=== PATIENT | female | born 1945 | race Caucasian/White ===

== ENCOUNTER 2016-07-14 14:44 | Emergency (ER) | payer MEDICARE, MEDICAID ==
[~2016-07-14] VITALS: Ht 157.5 cm; Wt 78.5 kg
[~2016-07-14 14:44] MED LIST: ALBU8.5H2 INH; AMLO1TAB59 PO; CHOL50006 PO; DOCU-25 PO; LANS30CA10 PO; LEVO112T8 PO; LINA290C PO; MAGN400T30 PO; METF10002 PO; METH4TAB16 PO; RIVA10TA PO; SIMV20TA6 PO; SOTA80TA PO; TURM1POW PO
[2016-07-14] MEDS ORDERED: LEVO500T90 PO (15:02)
--- NOTE | 2016-07-14 15:18 | NUR ---
PT IS IN ROOM #2A. DR PARKINSON EVALUATED THE PT.
[2016-07-14 15:34] LABS: BASOPHILS % (AUTO) 0.2 % (0.0-2.0); EOSINOPHILS # (AUTO) 0.2 K/uL (0.0-0.7); EOSINOPHILS % (AUTO) 1.9 % (0.0-7.0); HEMATOCRIT 38.7 % (37.0-47.0); LYMPHOCYTES # (AUTO) 3.9 K/uL (0.8-4.8); LYMPHOCYTES % (AUTO) 41.3 % (20.5-51.5); MEAN CORPUSCULAR HEMOGLOBIN 30.5 uug (27.0-31.0); MEAN CORPUSCULAR HGB CONC 34 g/dL (32.0-37.0); MEAN CORPUSCULAR VOLUME 90.6 fL (81.0-99.0); MONOCYTES # (AUTO) 0.7 K/uL (0.1-1.30); MONOCYTES % (AUTO) 6.9 % (0.0-11.0); NEUTROPHILS # (AUTO) 4.7 K/uL (1.8-8.9); NEUTROPHILS % (AUTO) 49.7 % (38.5-71.5); PLATELET COUNT (AUTO) 245 K/uL (150-450); RED BLOOD CELL COUNT(AUTO) 4.27 MIL/uL (4.20-5.40); RED CELL DISTRIBUTION WIDTH 12.7 % (11.5-14.5); WHITE BLOOD COUNT (AUTO) 9.4 K/uL (4.0-11.2)
[2016-07-14 15:39] LABS: CALCIUM 8.7 mg/dL (8.5-10.1); POTASSIUM 4.1 mmol/L (3.5-5.1)
[2016-07-14 15:45] LABS: ALBUMIN 3.3 g/dL (3.4-5.0); BILIRUBIN,DIRECT 0.1 mg/dL (0.0-0.2); BILIRUBIN,TOTAL 0.3 mg/dL (0.2-1.0); TOTAL PROTEIN, SERUM 7.4 g/dL (6.4-8.2)
[2016-07-14 15:55] VITALS: BP 142/77
== END 2016-07-14 15:57 | disposition home or self-care (01) ==
LOC: ER 14:44
DX: R07.89 Other chest pain (principal); I10 Essential (primary) hypertension; I48.91 Unspecified atrial fibrillation; E11.9 Type 2 diabetes mellitus without complications; I63.9 Cerebral infarction, unspecified
CPT/HCPCS: 36415; 70030-TC; 85025; 85730; 93005; A4663

== ENCOUNTER 2017-05-15 03:10 | Emergency (ER) | payer MEDICARE, MEDICAID ==
[~2017-05-15] VITALS: Ht 157.5 cm; Wt 78.0 kg
[~2017-05-15 03:10] MED LIST changes: -ALBU8.5H2 INH; +ALBU8.5H8 INH; +AMLO1TAB33 PO; -AMLO1TAB59 PO; +DOCU-141 PO; -DOCU-25 PO; -LANS30CA10 PO; +LANS30CA54 PO; +LEVO500T90 PO; -SIMV20TA6 PO
--- NOTE | 2017-05-15 03:31 | NUR ---
LEYLA WALLACE AT PT BEDSIDE FOR MSE.
--- NOTE | 2017-05-15 03:44 | NUR ---
PT STATES SHE HAS A RAPID HEART RATE, WHICH SHE BELIEVES IS FROM TAKING HER HOME MEDICATIONS 4 HOURS LATE. VSS AT THIS TIME. NO SIGNS OF DISTRESS NOTED. AT BEDSIDE.
[2017-05-15] MEDS ORDERED: METOPROLOL TARTRATE 50 MG TABLET PO ONE (03:45)
[2017-05-15] MEDS ORDERED: METOPROLOL TARTRATE 50 MG TABLET ONE (04:05)
--- NOTE | 2017-05-15 04:11 | NUR ---
LAB AT PT BEDSIDE.
[2017-05-15 04:26] LABS: BASOPHILS % (AUTO) 0.3 % (0.0-2.0); EOSINOPHILS # (AUTO) 0.2 K/uL (0.0-0.7); EOSINOPHILS % (AUTO) 2.6 % (0.0-7.0); HEMATOCRIT 38.6 % (31.2-41.9); HEMOGLOBIN 13.1 g/dL (10.9-14.3); LYMPHOCYTES # (AUTO) 3.5 K/uL (20.0-40.0); LYMPHOCYTES % (AUTO) 44.4 % (20.5-51.5); MEAN CORPUSCULAR HEMOGLOBIN 31.6 uug (24.7-32.8); MEAN CORPUSCULAR HGB CONC 34 g/dL (32.3-35.6); MEAN CORPUSCULAR VOLUME 93.2 fL (75.5-95.3); MONOCYTES # (AUTO) 0.5 K/uL (2.0-10.0); MONOCYTES % (AUTO) 6.9 % (0.0-11.0); NEUTROPHILS # (AUTO) 3.7 K/uL (1.8-8.9); NEUTROPHILS % (AUTO) 45.8 % (38.5-71.5); PLATELET COUNT (AUTO) 176 K/uL (179-408); RED BLOOD CELL COUNT(AUTO) 4.14 MIL/uL (3.63-4.92)
[2017-05-15 04:30] LABS: CARBON DIOXIDE 27 mmol/L (21-32); CHLORIDE 104 mmol/L (98-107); CREATININE 0.8 mg/dL (0.6-1.3); GLUCOSE 139 mg/dL (74-106); POTASSIUM 3.9 mmol/L (3.5-5.1); UREA NITROGEN, BLOOD 21 mg/dL (7-18)
[2017-05-15 04:37] LABS: ALANINE AMINOTRANSFERASE 15 U/L (14-59); ALKALINE PHOSPHATASE 44 U/L (50-136); ASPARTATE AMINOTRANSFERASE 13 U/L (15-37); BILIRUBIN,DIRECT 0.1 mg/dL (0.0-0.2); BILIRUBIN,TOTAL 0.2 mg/dL (0.2-1.0); TOTAL PROTEIN, SERUM 7.8 g/dL (6.4-8.2)
--- NOTE | 2017-05-15 04:40 | NUR ---
PT AMBULATED INDEPENDENTLY FROM BED TO RESTROOM W/ STEADY GAIT. DENIES DIZZINESS OR SOB.
--- NOTE | 2017-05-15 05:14 | NUR ---
XRAY AT PT BEDSIDE.
--- NOTE | 2017-05-15 06:08 | NUR ---
PT RESTING W/ EYES CLOSED. NO SIGNS OF DISTRESS NOTED AT THIS TIME.
--- NOTE | 2017-05-15 06:56 | NUR ---
Patient discharged to home in stable conditon. Written and verbal after care instructions given. Patient verbalizes understanding of instructions. Pt ambulated from ER w/ steady gait. Pt took all belongings.
[2017-05-15 06:57] VITALS: BP 100/59
== END 2017-05-15 06:58 | disposition home or self-care (01) ==
LOC: ER 03:10
DX: I48.0 Paroxysmal atrial fibrillation (principal); M54.2 Cervicalgia; R00.2 Palpitations; F41.9 Anxiety disorder, unspecified; D68.9 Coagulation defect, unspecified; E11.9 Type 2 diabetes mellitus without complications; G89.29 Other chronic pain; I10 Essential (primary) hypertension; I48.2 Chronic atrial fibrillation; Z86.73 Personal history of transient ischemic attack (TIA), and cerebral infarction without residual deficits
CPT/HCPCS: 36415; 70030-TC; 71045; 85025; 85730; 93005; A4663

== ENCOUNTER 2017-06-14 11:02 | Emergency (ER) | payer MEDICARE, MEDICAID ==
[~2017-06-14] VITALS: Ht 157.5 cm; Wt 78.0 kg
[~2017-06-14 11:02] MED LIST changes: -METF10002 PO; +METF10004 PO
[2017-06-14] MEDS ORDERED: methylPREDNISolone SOD SUCC 125 MG/2 ML VIAL IV ONE (11:30)
[2017-06-14] MEDS ORDERED: ALBUTEROL SULFATE 2.5 MG/3 ML NEBU NEB ONE (11:30)
[2017-06-14] MEDS ORDERED: ONDANSETRON IV *ER 4 MG/2 ML VIAL IV ONE (11:30)
[2017-06-14] MEDS ORDERED: IPRATROPIUM BROMIDE 0.5 MG/2.5 ML NEBU NEB ONE (11:30)
--- NOTE | 2017-06-14 11:30 | NUR ---
PT IS IN ROOM #2A. DR OTERO EVALUATED THE PT.
[2017-06-14] MEDS ORDERED: IPRATROPIUM BROMIDE 0.5 MG/2.5 ML NEBU ONE (11:36)
[2017-06-14] MEDS ORDERED: ALBUTEROL SULFATE 2.5 MG/3 ML NEBU ONE (11:36)
[2017-06-14] MEDS ORDERED: ALBUTEROL SULFATE 2.5 MG/ 0.5 ML NEBU ONE (11:37)
[2017-06-14] MEDS ORDERED: MORPHINE SULFATE 4 MG/1 ML DISP.SYRIN IV ONE (11:45)
[2017-06-14 11:48] LABS: BASOPHILS % (AUTO) 0.5 % (0.0-2.0); EOSINOPHILS % (AUTO) 0.8 % (0.0-7.0); HEMATOCRIT 40.5 % (31.2-41.9); HEMOGLOBIN 13.7 g/dL (10.9-14.3); MEAN CORPUSCULAR HEMOGLOBIN 30.8 uug (24.7-32.8); MEAN CORPUSCULAR HGB CONC 34 g/dL (32.3-35.6); MEAN CORPUSCULAR VOLUME 90.9 fL (75.5-95.3); MONOCYTES # (AUTO) 0.4 K/uL (2.0-10.0); MONOCYTES % (AUTO) 8.6 % (0.0-11.0); NEUTROPHILS % (AUTO) 45.1 % (38.5-71.5); PLATELET COUNT (AUTO) 175 K/uL (179-408); RED BLOOD CELL COUNT(AUTO) 4.46 MIL/uL (3.63-4.92); WHITE BLOOD COUNT (AUTO) 4.3 K/uL (3.8-11.8)
[2017-06-14] MEDS ORDERED: MORPHINE SULFATE 4 MG/1 ML DISP.SYRIN ONE (11:50)
[2017-06-14] MEDS ORDERED: MOME13HF2 IH (11:51)
[2017-06-14] MEDS ORDERED: DEXL60CA3 PO (11:51)
[2017-06-14] MEDS ORDERED: ACET-2154 PO (11:51)
[2017-06-14] MEDS ORDERED: IBUP-23 PO (11:51)
[2017-06-14] MEDS ORDERED: AZIL1TAB2 PO (11:51)
[2017-06-14] MEDS ORDERED: LEVO500T2 PO (11:51)
[2017-06-14] MEDS ORDERED: ONDANSETRON 4 MG/2 ML VIAL ONE (11:51)
[2017-06-14] MEDS ORDERED: methylPREDNISolone SOD SUCC 125 MG/2 ML VIAL ONE (11:51)
[2017-06-14] MEDS ORDERED: AMLO10TA2 PO (11:51)
[2017-06-14 11:58] LABS: CARBON DIOXIDE 26 mmol/L (21-32); CHLORIDE 99 mmol/L (98-107); CREATININE 1.5 mg/dL (0.6-1.3); GLUCOSE 118 mg/dL (74-106); POTASSIUM 3.6 mmol/L (3.5-5.1); UREA NITROGEN, BLOOD 24 mg/dL (7-18)
[2017-06-14 12:11] LABS: ALANINE AMINOTRANSFERASE 16 U/L (14-59); ALKALINE PHOSPHATASE 56 U/L (50-136); ASPARTATE AMINOTRANSFERASE 19 U/L (15-37); BILIRUBIN,DIRECT 0.1 mg/dL (0.0-0.2); BILIRUBIN,TOTAL 0.3 mg/dL (0.2-1.0); TOTAL PROTEIN, SERUM 8.4 g/dL (6.4-8.2)
[2017-06-14 13:30] VITALS: BP 139/75
--- NOTE | 2017-06-14 13:30 | NUR ---
PT WAS D/C TO HOME. D/C INSTRUCTIONS GIVEN TO THE PT.
== END 2017-06-14 13:31 | disposition home or self-care (01) ==
LOC: ER 11:02
DX: R07.89 Other chest pain (principal); J44.1 Chronic obstructive pulmonary disease with (acute) exacerbation; I10 Essential (primary) hypertension; E11.9 Type 2 diabetes mellitus without complications; G89.29 Other chronic pain; M54.9 Dorsalgia, unspecified; Z88.8 Allergy status to other drugs, medicaments and biological substances; Z79.1 Long term (current) use of non-steroidal anti-inflammatories (NSAID); Z79.84 Long term (current) use of oral hypoglycemic drugs; Z79.899 Other long term (current) drug therapy; Z79.2 Long term (current) use of antibiotics
CPT/HCPCS: 36415; 71045; 80048; 80076; 83880; 84484; 85025; 85379; 93005; 94644; 96374; 96375; 99285; A4663; J2270; J2405; J2930; J3590; J7030; 70030-TC

== ENCOUNTER 2018-05-06 02:57 | Emergency (ER) | payer MEDICARE, MEDICAID ==
[~2018-05-06] VITALS: Ht 157.5 cm; Wt 77.1 kg
[~2018-05-06 02:57] MED LIST changes: +ACET-2154 PO; -ALBU8.5H8 INH; +AMLO10TA7 PO; -AMLO1TAB33 PO; +AZIL1TAB2 PO; +DEXL60CA3 PO; +IBUP-23 PO; -LANS30CA54 PO; +LEVO500T2 PO; -LEVO500T90 PO; -MAGN400T30 PO; +METF-442 PO; -METF10004 PO; -METH4TAB16 PO; +MOME13HF2 IH
[2018-05-06] MEDS ORDERED: LINZESS 290MCG CAPSULE (03:06)
--- NOTE | 2018-05-06 03:10 | NUR ---
Pt. ambulated into ED w/ c/o 12/19 L rib pain that radiates to back since yesterday, pt. has hx of Afib and is currently taking Xeralto, abd. S/R/distended/NT to touch, BS active X4 quads.,
[2018-05-06] MEDS ORDERED: ACETAMINOPHEN 325 MG TABLET PO ONE (03:15)
[2018-05-06] MEDS ORDERED: ACETAMINOPHEN 325 MG TABLET ONE (03:23)
--- NOTE | 2018-05-06 03:33 | NUR ---
maintenance service technician at bedside for CXR, pt. resting in bed w/ eyes open,
--- NOTE | 2018-05-06 03:53 | NUR ---
Patient discharged to home in stable conditon. Written and verbal after care instructions given. Patient verbalizes understanding of instructions. Pt. d/c w/ prescription per MD order, instructed not to drive, all d/c papers signed, ID band removed, all belongings w/ pt., ambulated out of unit w/ steady gait, left in private vehicle w/ , NAD
== END 2018-05-06 03:56 | disposition home or self-care (01) ==
LOC: ER 02:59
DX: R07.89 Other chest pain (principal); J40 Bronchitis, not specified as acute or chronic; I10 Essential (primary) hypertension; I48.91 Unspecified atrial fibrillation; E11.9 Type 2 diabetes mellitus without complications; G89.29 Other chronic pain; M54.9 Dorsalgia, unspecified; Z79.2 Long term (current) use of antibiotics; Z79.899 Other long term (current) drug therapy; Z79.1 Long term (current) use of non-steroidal anti-inflammatories (NSAID)
CPT/HCPCS: 71045; 93005; A4663

== ENCOUNTER 2018-05-24 15:15 | Inpatient (IN) | payer MEDICARE, MEDICAID ==
[~2018-05-24] VITALS: Ht 160 cm; Wt 83.5 kg
[~2018-05-24 15:15] MED LIST changes: -DOCU-141 PO; +LINZESS 290MCG CAPSULE
[2018-05-24 15:59] LABS: BASOPHILS % (AUTO) 0.4 % (0.0-2.0); EOSINOPHILS # (AUTO) 0.2 K/uL (0.0-0.7); EOSINOPHILS % (AUTO) 2.5 % (0.0-7.0); HEMATOCRIT 38.8 % (31.2-41.9); HEMOGLOBIN 12.9 g/dL (10.9-14.3); LYMPHOCYTES # (AUTO) 3.2 K/uL (20.0-40.0); LYMPHOCYTES % (AUTO) 42.4 % (20.5-51.5); MEAN CORPUSCULAR HEMOGLOBIN 31.1 uug (24.7-32.8); MEAN CORPUSCULAR HGB CONC 33 g/dL (32.3-35.6); MEAN CORPUSCULAR VOLUME 93.8 fL (75.5-95.3); MONOCYTES # (AUTO) 0.5 K/uL (2.0-10.0); MONOCYTES % (AUTO) 6.6 % (0.0-11.0); NEUTROPHILS # (AUTO) 3.6 K/uL (1.8-8.9); NEUTROPHILS % (AUTO) 48.1 % (38.5-71.5); PLATELET COUNT (AUTO) 208 K/uL (179-408); RED BLOOD CELL COUNT(AUTO) 4.14 MIL/uL (3.63-4.92); WHITE BLOOD COUNT (AUTO) 7.6 K/uL (3.8-11.8)
[2018-05-24 16:07] LABS: CARBON DIOXIDE 23 mmol/L (21-32); CHLORIDE 102 mmol/L (98-107); CREATININE 1.3 mg/dL (0.6-1.3); GLUCOSE 136 mg/dL (74-106); POTASSIUM 3.6 mmol/L (3.5-5.1); UREA NITROGEN, BLOOD 38 mg/dL (7-18)
[2018-05-24] MEDS ORDERED: HYDROMORPHONE 1 MG/1 ML DISP.SYRIN IV ONE (16:15)
[2018-05-24] MEDS ORDERED: HYDROMORPHONE 1 MG/1 ML DISP.SYRIN ONE (16:16)
[2018-05-24] MEDS ORDERED: TURMERIC 1000 MG PO SCH (17:15)
[2018-05-24] MEDS ORDERED: DEXTROSE 50% 50 ML DISP.SYRIN IV PRN (17:15)
[2018-05-24] MEDS ORDERED: Medication Not On Formulary EA (Linaclotide (Linzess) 290 MCG) PO PRN (17:15)
[2018-05-24] MEDS ORDERED: ONDANSETRON 4 MG/2 ML VIAL IV PRN (17:15)
[2018-05-24] MEDS ORDERED: MORPHINE SULFATE 2 MG/1 ML DISP.SYRIN IV PRN (17:15)
[2018-05-24] MEDS ORDERED: CHOLECALCIFEROL 50000 UNIT PO SCH (17:15)
[2018-05-24] MEDS ORDERED: Z GUARD REMEDY PASTE 57 GM TUBE TOP PRN (17:15)
[2018-05-24] MEDS ORDERED: ACETAMINOPHEN 325 MG TABLET PO PRN (17:15)
[2018-05-24] MEDS ORDERED: [UNRECOGNIZED DRUG - OTHER] PO SCH (17:15)
[2018-05-24] MEDS ORDERED: ERGOCALCIFEROL 50,000 UNIT CAPSULE PO SCH (18:00)
[2018-05-24 18:20] VITALS: BP 152/81
[2018-05-24 19:25] VITALS: BP 117/68
[2018-05-24] MEDS: IV NS 1000 ML 1,000 ML IV PRN (20:03)
[2018-05-24] MEDS: BLOOD SUGAR DIAGNOSTIC 1 EACH STRIP VI SCH (20:25)
[2018-05-24] MEDS: INSULIN REGULAR, HUMAN 300 UNIT/3 ML VIAL SQ PRN (20:28)
[2018-05-24] MEDS: MORPHINE SULFATE 4 MG/1 ML DISP.SYRIN IV PRN (20:43)
[2018-05-25] MEDS: MORPHINE SULFATE 4 MG/1 ML DISP.SYRIN IV PRN ×3 (00:27→09:30)
[2018-05-25] MEDS ORDERED: SIMETHICONE 80 MG TAB.CHEW PO PRN (00:30)
[2018-05-25 03:47] VITALS: BP 118/64
[2018-05-25] MEDS: LEVOTHYROXINE SODIUM 112 MCG TABLET PO SCH (06:16)
[2018-05-25] MEDS: BLOOD SUGAR DIAGNOSTIC 1 EACH STRIP VI SCH ×4 (06:30→20:26)
[2018-05-25 06:36] LABS: BASOPHILS % (AUTO) 0.1 % (0.0-2.0); EOSINOPHILS % (AUTO) 0.5 % (0.0-7.0); HEMATOCRIT 34.5 % (31.2-41.9); HEMOGLOBIN 11.7 g/dL (10.9-14.3); LYMPHOCYTES # (AUTO) 2.5 K/uL (20.0-40.0); LYMPHOCYTES % (AUTO) 30.5 % (20.5-51.5); MEAN CORPUSCULAR HEMOGLOBIN 31.2 uug (24.7-32.8); MEAN CORPUSCULAR HGB CONC 34 g/dL (32.3-35.6); MEAN CORPUSCULAR VOLUME 92.1 fL (75.5-95.3); MONOCYTES # (AUTO) 0.7 K/uL (2.0-10.0); MONOCYTES % (AUTO) 7.8 % (0.0-11.0); NEUTROPHILS # (AUTO) 5.1 K/uL (1.8-8.9); NEUTROPHILS % (AUTO) 61.1 % (38.5-71.5); PLATELET COUNT (AUTO) 180 K/uL (179-408); RED BLOOD CELL COUNT(AUTO) 3.75 MIL/uL (3.63-4.92); WHITE BLOOD COUNT (AUTO) 8.4 K/uL (3.8-11.8)
[2018-05-25 06:55] LABS: ALANINE AMINOTRANSFERASE 12 U/L (14-59); ALKALINE PHOSPHATASE 52 U/L (50-136); ASPARTATE AMINOTRANSFERASE 16 U/L (15-37); BILIRUBIN,TOTAL 0.5 mg/dL (0.2-1.0); CARBON DIOXIDE 25 mmol/L (21-32); CHLORIDE 103 mmol/L (98-107); CHOLESTEROL 112 mg/dL (<200); CREATININE 0.9 mg/dL (0.6-1.3); GLUCOSE 125 mg/dL (74-106); HDL CHOLESTEROL 47 mg/dL (40-60); MAGNESIUM 2.2 mg/dL (1.8-2.4); PHOSPHOROUS 3.3 mg/dL (2.5-4.9); POTASSIUM 3.2 mmol/L (3.5-5.1); TOTAL PROTEIN, SERUM 7.4 g/dL (6.4-8.2); TRIGLYCERIDES 82 MG/DL (30-150); UREA NITROGEN, BLOOD 28 mg/dL (7-18)
[2018-05-25 07:00] LABS: THYROID STIMULATING HORMONE 4.559 mIU/mL (0.358-3.740)
[2018-05-25] MEDS: SOTALOL HCL 80 MG TABLET PO SCH ×2 (08:57→17:57)
[2018-05-25] MEDS: INSULIN REGULAR, HUMAN 300 UNIT/3 ML VIAL SQ PRN ×3 (08:59→20:28)
[2018-05-25] MEDS ORDERED: [UNRECOGNIZED DRUG - OTHER] PO SCH (09:00)
[2018-05-25] MEDS ORDERED: CHLORTHALIDONE PO SCH (09:00)
[2018-05-25] MEDS ORDERED: AZILSARTAN MED PO SCH (09:00)
[2018-05-25] MEDS: IV NS 1000 ML 1,000 ML IV PRN (10:24)
[2018-05-25] MEDS ORDERED: POTASSIUM CHLORIDE 20 MEQ TAB.PRT.SR PO ONE (10:30)
[2018-05-25] MEDS: DOCUSATE SODIUM 100 MG CAPSULE PO SCH ×2 (11:19→20:23)
[2018-05-25 11:49] VITALS: BP 102/71
[2018-05-25 12:01] LABS: *BILIRUBIN,URIN NEGATIVE (NEGATIVE); *BLOOD, URINE NEGATIVE (NEGATIVE); *CLARITY,URINE CLEAR (CLEAR); *COLOR,URINE YELLOW (YELLOW); *KETONES,URINE NEGATIVE (NEGATIVE); *UROBILINOGEN,URINE 0.2 E.U./dl (NORMAL); LEUKOCYTE ESTERASE ,URINE NEGATIVE (NEGATIVE); NITRITE, URINE NEGATIVE (NEGATIVE); PH,URINE 5.5 (5.0-8.0); UGLUCOSE 2+ (NEGATIVE)
[2018-05-25 12:13] LABS: BACTERIA,URINE FEW /HPF (NONE SEEN); RBC,URINE 0-3 /HPF (0-3); SQUAMOUS EPITHELIAL CELL,UR FEW /HPF (NONE SEEN); WBC,URINE 0-3 /HPF (0-3)
[2018-05-25] MEDS ORDERED: DOCU-141 PO (12:30)
[2018-05-25] MEDS ORDERED: MAGN400T26 PO (12:32)
[2018-05-25] MEDS: EDARBYCLOR PO SCH (12:43)
[2018-05-25 15:49] VITALS: BP 114/74
[2018-05-25] MEDS: HYDROMORPHONE 1 MG/1 ML DISP.SYRIN IV PRN (18:19)
[2018-05-25 20:14] VITALS: BP 96/54
[2018-05-26] MEDS: HYDROMORPHONE 1 MG/1 ML DISP.SYRIN IV PRN ×5 (02:03→22:08)
[2018-05-26] MEDS: IV NS 1000 ML 1,000 ML IV PRN (02:07)
[2018-05-26 04:28] VITALS: BP 126/75
[2018-05-26] MEDS: LEVOTHYROXINE SODIUM 112 MCG TABLET PO SCH (06:27)
[2018-05-26] MEDS: BLOOD SUGAR DIAGNOSTIC 1 EACH STRIP VI SCH ×4 (06:39→21:10)
[2018-05-26 06:41] LABS: BASOPHILS % (AUTO) 0.3 % (0.0-2.0); EOSINOPHILS # (AUTO) 0.1 K/uL (0.0-0.7); HEMATOCRIT 34.7 % (31.2-41.9); HEMOGLOBIN 11.9 g/dL (10.9-14.3); LYMPHOCYTES # (AUTO) 2.2 K/uL (20.0-40.0); LYMPHOCYTES % (AUTO) 29.2 % (20.5-51.5); MEAN CORPUSCULAR HEMOGLOBIN 31.6 uug (24.7-32.8); MEAN CORPUSCULAR HGB CONC 34 g/dL (32.3-35.6); MEAN CORPUSCULAR VOLUME 92.4 fL (75.5-95.3); MONOCYTES # (AUTO) 0.7 K/uL (2.0-10.0); NEUTROPHILS # (AUTO) 4.6 K/uL (1.8-8.9); NEUTROPHILS % (AUTO) 60.5 % (38.5-71.5); PLATELET COUNT (AUTO) 171 K/uL (179-408); RED BLOOD CELL COUNT(AUTO) 3.76 MIL/uL (3.63-4.92); WHITE BLOOD COUNT (AUTO) 7.6 K/uL (3.8-11.8)
[2018-05-26 06:47] LABS: CARBON DIOXIDE 27 mmol/L (21-32); CHLORIDE 102 mmol/L (98-107); CREATININE 0.8 mg/dL (0.6-1.3); GLUCOSE 131 mg/dL (74-106); POTASSIUM 3.5 mmol/L (3.5-5.1); UREA NITROGEN, BLOOD 17 mg/dL (7-18)
[2018-05-26] MEDS: HYDROCODONE/APAP 5-325MG TABLET PO PRN ×2 (07:44→11:27)
[2018-05-26] MEDS: DOCUSATE SODIUM 100 MG CAPSULE PO SCH ×2 (08:47→21:04)
[2018-05-26] MEDS: EDARBYCLOR PO SCH (08:47)
[2018-05-26] MEDS: SOTALOL HCL 80 MG TABLET PO SCH ×2 (08:47→17:52)
[2018-05-26] MEDS: BENZOCAINE/MENTH/CETYLPYRD LOZENGE MM PRN ×2 (09:43→22:37)
[2018-05-26 11:08] VITALS: BP 93/56
[2018-05-26] MEDS: INSULIN REGULAR, HUMAN 300 UNIT/3 ML VIAL SQ PRN ×2 (11:26→21:12)
[2018-05-26] MEDS ORDERED: BISACODYL 10 MG SUPP.RECT RC ONE (11:45)
[2018-05-26 15:24] VITALS: BP 104/62
[2018-05-26] MEDS: POTASSIUM CHLORIDE 20 MEQ in IV D5/ 0.9% NACL 1,000 ML IV PRN (18:19)
[2018-05-26 19:26] VITALS: BP 102/65
[2018-05-27] MEDS: HYDROMORPHONE 1 MG/1 ML DISP.SYRIN IV PRN ×3 (01:16→20:20)
[2018-05-27 03:30] VITALS: BP 142/81
[2018-05-27] MEDS: POTASSIUM CHLORIDE 20 MEQ in IV D5/ 0.9% NACL 1,000 ML IV PRN (04:29)
[2018-05-27] MEDS: LEVOTHYROXINE SODIUM 112 MCG TABLET PO SCH (06:15)
[2018-05-27] MEDS ORDERED: CEFAZOLIN 1 G in PREMIXED 1 EACH IV ONE (06:45)
[2018-05-27] MEDS ORDERED: BACITRACIN 50,000 UNITS VIAL ONE (06:47)
[2018-05-27] MEDS ORDERED: BUPIVACAINE/EPI PF 0.5% 10 ML VIAL ONE (06:48)
[2018-05-27] MEDS: BLOOD SUGAR DIAGNOSTIC 1 EACH STRIP VI SCH ×4 (06:48→20:49)
[2018-05-27] MEDS: INSULIN REGULAR, HUMAN 300 UNIT/3 ML VIAL SQ PRN ×2 (06:53→20:51)
[2018-05-27] MEDS ORDERED: MIDAZOLAM HCL 2 MG/2 ML VIAL ONE (07:26)
[2018-05-27] MEDS ORDERED: FENTANYL CITRATE 100 MCG/2 ML AMPUL ONE ×3 (07:26→10:56)
[2018-05-27] MEDS: DOCUSATE SODIUM 100 MG CAPSULE PO SCH ×2 (09:00→20:25)
[2018-05-27] MEDS: EDARBYCLOR PO SCH (09:00)
[2018-05-27] MEDS: SOTALOL HCL 80 MG TABLET PO SCH ×2 (09:00→17:25)
[2018-05-27] MEDS ORDERED: ONDANSETRON 4 MG/2 ML VIAL ONE ×2 (10:52→11:05)
[2018-05-27 11:55] VITALS: BP 119/75
[2018-05-27] MEDS: CEFAZOLIN 1 G in PREMIXED 1 EACH IV SCH ×2 (14:04→21:05)
[2018-05-27 15:22] VITALS: BP 92/51
[2018-05-27] MEDS ORDERED: SEVOFLURANE 250 ML BOTTLE IH ONE (15:25)
[2018-05-27] MEDS ORDERED: IRR NORMAL SALINE IRRIGATION 1,000 ML BOTTLE IR ONE (15:25)
[2018-05-27] MEDS ORDERED: ONDANSETRON 4 MG/2 ML VIAL IV ONE (15:25)
[2018-05-27] MEDS ORDERED: PROPOFOL 200 MG/20 ML BOTTLE IV ONE (15:25)
[2018-05-27] MEDS ORDERED: [UNRECOGNIZED DRUG - OTHER] IR ONE (15:25)
[2018-05-27] MEDS ORDERED: LIDOCAINE-MPF 2% 5 ML VIAL MC ONE (15:25)
[2018-05-27] MEDS ORDERED: EPHEDRINE SULFATE 50 MG/ML AMPUL MC ONE (15:25)
[2018-05-27] MEDS ORDERED: IV NORMAL SALINE 1000 ML BAG IV ONE (15:25)
[2018-05-27] MEDS ORDERED: KETOROLAC TROMETHAMINE 30 MG INJ IM ONE (15:25)
[2018-05-27] MEDS: RIVAROXABAN 10 MG TABLET PO SCH (18:28)
[2018-05-27 20:27] VITALS: BP 94/50
[2018-05-28] MEDS: HYDROMORPHONE 1 MG/1 ML DISP.SYRIN IV PRN ×3 (01:30→11:43)
[2018-05-28 04:00] VITALS: BP 90/52
[2018-05-28 05:59] LABS: BASOPHILS % (AUTO) 0.4 % (0.0-2.0); EOSINOPHILS # (AUTO) 0.1 K/uL (0.0-0.7); EOSINOPHILS % (AUTO) 1.3 % (0.0-7.0); HEMATOCRIT 30.2 % (31.2-41.9); HEMOGLOBIN 10.3 g/dL (10.9-14.3); LYMPHOCYTES # (AUTO) 1.8 K/uL (20.0-40.0); LYMPHOCYTES % (AUTO) 22.7 % (20.5-51.5); MEAN CORPUSCULAR HEMOGLOBIN 31.8 uug (24.7-32.8); MEAN CORPUSCULAR HGB CONC 34 g/dL (32.3-35.6); MEAN CORPUSCULAR VOLUME 93.4 fL (75.5-95.3); MONOCYTES # (AUTO) 0.7 K/uL (2.0-10.0); MONOCYTES % (AUTO) 8.5 % (0.0-11.0); NEUTROPHILS # (AUTO) 5.3 K/uL (1.8-8.9); NEUTROPHILS % (AUTO) 67.1 % (38.5-71.5); PLATELET COUNT (AUTO) 172 K/uL (179-408); RED BLOOD CELL COUNT(AUTO) 3.24 MIL/uL (3.63-4.92); WHITE BLOOD COUNT (AUTO) 7.9 K/uL (3.8-11.8)
[2018-05-28 06:07] LABS: CARBON DIOXIDE 27 mmol/L (21-32); CHLORIDE 101 mmol/L (98-107); GLUCOSE 152 mg/dL (74-106); UREA NITROGEN, BLOOD 17 mg/dL (7-18)
[2018-05-28] MEDS: LEVOTHYROXINE SODIUM 112 MCG TABLET PO SCH (06:21)
[2018-05-28] MEDS: BLOOD SUGAR DIAGNOSTIC 1 EACH STRIP VI SCH ×4 (06:59→20:53)
[2018-05-28] MEDS: INSULIN REGULAR, HUMAN 300 UNIT/3 ML VIAL SQ PRN ×4 (08:57→20:59)
[2018-05-28] MEDS: EDARBYCLOR PO SCH ×2 (09:00→09:02)
[2018-05-28] MEDS: DOCUSATE SODIUM 100 MG CAPSULE PO SCH ×2 (09:00→20:54)
[2018-05-28] MEDS: SOTALOL HCL 80 MG TABLET PO SCH (09:00)
[2018-05-28 09:04] VITALS: BP 90/54
[2018-05-28] MEDS ORDERED: IV NORMAL SALINE 500 ML IV ONE ×2 (10:00→10:30)
[2018-05-28 13:15] VITALS: BP 100/55
[2018-05-28] MEDS: HYDROCODONE/APAP 5-325MG TABLET PO PRN ×2 (14:23→20:56)
[2018-05-28 16:44] VITALS: BP 92/49
[2018-05-28] MEDS: RIVAROXABAN 10 MG TABLET PO SCH (17:09)
[2018-05-28] MEDS: MAGNESIUM HYDROXIDE 30 ML LIQUID UDC PO PRN (17:17)
[2018-05-28 20:00] VITALS: BP 100/65
[2018-05-29] MEDS: HYDROCODONE/APAP 5-325MG TABLET PO PRN ×2 (04:11→08:50)
[2018-05-29 04:30] VITALS: BP 105/59
[2018-05-29] MEDS: LEVOTHYROXINE SODIUM 112 MCG TABLET PO SCH (06:08)
[2018-05-29] MEDS: BLOOD SUGAR DIAGNOSTIC 1 EACH STRIP VI SCH ×3 (06:48→17:30)
[2018-05-29 07:58] VITALS: BP 113/71
[2018-05-29] MEDS: DOCUSATE SODIUM 100 MG CAPSULE PO SCH (08:08)
[2018-05-29] MEDS: MAGNESIUM HYDROXIDE 30 ML LIQUID UDC PO PRN (10:21)
[2018-05-29 11:08] VITALS: BP 93/51
[2018-05-29] MEDS: INSULIN REGULAR, HUMAN 300 UNIT/3 ML VIAL SQ PRN ×2 (13:07→17:32)
[2018-05-29] MEDS ORDERED: CALCIUM CARBONATE 500 MG TAB.CHEW PO PRN (14:15)
[2018-05-29 15:02] VITALS: BP 99/61
[2018-05-29] MEDS: RIVAROXABAN 10 MG TABLET PO SCH (17:31)
[2018-05-29] MEDS ORDERED: HYDR-3326 PO (20:03)
[2018-05-29] MEDS ORDERED: CALC300T4 PO (20:03)
[2018-05-29] MEDS ORDERED: SIME80TA45 PO (20:03)
[2018-05-29] MEDS ORDERED: BENZ1LOZ58 MM (20:03)
[2018-05-29] MEDS ORDERED: CALC-494 PO (20:03)
== END 2018-05-29 18:25 | DRG 480 ==
LOC: ER 15:15 → MED 16:49
PROVIDERS: ADMIT Nurse Practitioner Acute Care; ATTEND Nurse Practitioner Acute Care
PROC: 0QS736Z Reposition Left Upper Femur with Intramedullary Internal Fixation Device, Percutaneous Approach (ICD-10-PCS; principal; 2018-05-27)
PROC: 0PSJXZZ Reposition Left Radius, External Approach (ICD-10-PCS; 2018-05-27)
DX: S52.592A Other fractures of lower end of left radius, initial encounter for closed fracture (principal); S72.142A Displaced intertrochanteric fracture of left femur, initial encounter for closed fracture; E44.1 Mild protein-calorie malnutrition; S52.612A Displaced fracture of left ulna styloid process, initial encounter for closed fracture; W18.39XA Other fall on same level, initial encounter; Y93.89 Activity, other specified; Y92.013 Bedroom of single-family (private) house as the place of occurrence of the external cause; M19.032 Primary osteoarthritis, left wrist; M25.462 Effusion, left knee; I48.0 Paroxysmal atrial fibrillation; I10 Essential (primary) hypertension; G89.29 Other chronic pain; M54.9 Dorsalgia, unspecified; E89.0 Postprocedural hypothyroidism; E66.9 Obesity, unspecified; Z68.32 Body mass index [BMI] 32.0-32.9, adult; E78.5 Hyperlipidemia, unspecified; E87.6 Hypokalemia; E11.9 Type 2 diabetes mellitus without complications; Z79.01 Long term (current) use of anticoagulants; K21.9 Gastro-esophageal reflux disease without esophagitis; Z79.84 Long term (current) use of oral hypoglycemic drugs; K59.00 Constipation, unspecified; I70.0 Atherosclerosis of aorta; M81.0 Age-related osteoporosis without current pathological fracture; Z86.73 Personal history of transient ischemic attack (TIA), and cerebral infarction without residual deficits; Z83.3 Family history of diabetes mellitus; Z79.890 Hormone replacement therapy
CPT/HCPCS: 36415; 70030-TC; 71045; 73100; 73110; 73502; 73503; 73551; 83735; 84100; 84443; 85025; 85730; 86850; 86900; 86901; 93005; 93307; 97110; 97116; 97165; 97530; 97535; A4217; A4649; A4663; C1713; G0378; J0690; J1170; J1815; J1885; J2250; J2270; J2405; J3010; J3480; J3490; J7030; J7040; J7042

== ENCOUNTER 2018-05-29 15:48 | Inpatient (IN) | payer MEDICARE, MEDICAID ==
[~2018-05-29] VITALS: Ht 160 cm; Wt 83.9 kg
[~2018-05-29 15:48] MED LIST changes: -AMLO10TA7 PO; +DOCU-141 PO; -LEVO500T2 PO; -LINZESS 290MCG CAPSULE; +MAGN400T26 PO
--- NOTE | 2018-05-29 18:45 | NUR ---
Admitted from [facility] 2nd floor for left hip fracture, accompanied by CARLTON Zabala and family members, per hospital bed. Patient stable, not in any form of distress, no dizziness, headache or other symptoms of hypoglycemia noted. With tolerable pain on left arm. Informed Dr. White of admission. Informed patient about unit and oriented about therapy and equipment.
[2018-05-29] MEDS ORDERED: MAGNESIUM HYDROXIDE 30 ML LIQUID UDC PO PRN (19:30)
[2018-05-29] MEDS ORDERED: Z GUARD REMEDY PASTE 57 GM TUBE TOP PRN (19:30)
[2018-05-29] MEDS ORDERED: INSULIN REGULAR, HUMAN 300 UNIT/3 ML VIAL SQ PRN (20:00)
[2018-05-29] MEDS ORDERED: DEXTROSE 50% 50 ML DISP.SYRIN IV PRN ×2 (20:00→21:15)
[2018-05-29] MEDS ORDERED: SIME80TA45 PO (20:03)
[2018-05-29] MEDS ORDERED: CALC300T4 PO (20:03)
[2018-05-29] MEDS ORDERED: BENZ1LOZ58 MM (20:03)
[2018-05-29] MEDS ORDERED: HYDR-3326 PO (20:03)
[2018-05-29] MEDS ORDERED: CALC-494 PO (20:03)
[2018-05-29 20:29] VITALS: BP 120/72
[2018-05-29] MEDS ORDERED: CHOLECALCIFEROL 50000 UNIT PO SCH (21:00)
[2018-05-29] MEDS ORDERED: IBUPROFEN 200 MG TABLET PO PRN (21:00)
[2018-05-29] MEDS ORDERED: [UNRECOGNIZED DRUG - OTHER] PO SCH (21:00)
[2018-05-29] MEDS ORDERED: SIMETHICONE 80 MG TAB.CHEW PO PRN (21:00)
[2018-05-29] MEDS: DOCUSATE SODIUM 100 MG CAPSULE PO SCH (21:00)
[2018-05-29] MEDS ORDERED: CALCIUM CARBONATE 500 MG PO SCH (21:00)
[2018-05-29] MEDS ORDERED: Medication Not On Formulary EA (Linaclotide (Linzess) 290 MCG) PO PRN (21:00)
[2018-05-29] MEDS: BLOOD SUGAR DIAGNOSTIC 1 EACH STRIP VI SCH (21:50)
[2018-05-29] MEDS: INSULIN REGULAR, HUMAN 300 UNIT/3 ML VIAL SQ PRN (21:52)
[2018-05-29] MEDS ORDERED: MAGNESIUM OXIDE 400 MG TABLET PO SCH (22:00)
[2018-05-29] MEDS: HYDROCODONE/APAP 5-325MG TABLET PO PRN (23:10)
[2018-05-30] MEDS: HYDROCODONE/APAP 5-325MG TABLET PO PRN ×4 (03:48→20:32)
--- NOTE | 2018-05-30 04:46 | NUR ---
admitted for left radius ulnar fracture and left hip IM nailing. dressing clean dry and intact patient refused to have picture taken since dressing was changed @ 1700 (05/29) She and daughter says have it done in the morning. alert and oriented x4 LUE with shart arm cast intact, good capillary refill, good pulses, no edema.able to move fingers. On pain management. Medicated with [place] 1 tab q4 hrs as needed. Tolerated well. No ill effects noted. OOB to bedside commode. Voiding well. Had also BM this shift. OOB to commode with moderate assist. Fall precautions maintained. Needs attended. Will monitor patient. Rt arm heplock intact, flush and patent. Kept comfortable. Siderails up for safety.
[2018-05-30 05:02] VITALS: BP 111/64
[2018-05-30] MEDS: BLOOD SUGAR DIAGNOSTIC 1 EACH STRIP VI SCH ×4 (06:35→20:37)
[2018-05-30] MEDS ORDERED: BLOOD SUGAR DIAGNOSTIC 1 EACH STRIP VI SCH (07:30)
[2018-05-30] MEDS ORDERED: LEVOTHYROXINE SODIUM 112 MCG TABLET PO SCH ×2 (07:30)
[2018-05-30 07:46] LABS: BASOPHILS % (AUTO) 0.2 % (0.0-2.0); EOSINOPHILS # (AUTO) 0.1 K/uL (0.0-0.7); EOSINOPHILS % (AUTO) 1.8 % (0.0-7.0); HEMATOCRIT 29.1 % (31.2-41.9); HEMOGLOBIN 9.9 g/dL (10.9-14.3); LYMPHOCYTES # (AUTO) 1.8 K/uL (20.0-40.0); LYMPHOCYTES % (AUTO) 27.1 % (20.5-51.5); MEAN CORPUSCULAR HEMOGLOBIN 31.9 uug (24.7-32.8); MEAN CORPUSCULAR HGB CONC 34 g/dL (32.3-35.6); MEAN CORPUSCULAR VOLUME 93.1 fL (75.5-95.3); MONOCYTES # (AUTO) 0.5 K/uL (2.0-10.0); MONOCYTES % (AUTO) 7.3 % (0.0-11.0); NEUTROPHILS # (AUTO) 4.2 K/uL (1.8-8.9); NEUTROPHILS % (AUTO) 63.6 % (38.5-71.5); PLATELET COUNT (AUTO) 204 K/uL (179-408); RED BLOOD CELL COUNT(AUTO) 3.12 MIL/uL (3.63-4.92); WHITE BLOOD COUNT (AUTO) 6.6 K/uL (3.8-11.8)
[2018-05-30 08:01] LABS: ALANINE AMINOTRANSFERASE 15 U/L (14-59); ALKALINE PHOSPHATASE 62 U/L (50-136); ASPARTATE AMINOTRANSFERASE 25 U/L (15-37); BILIRUBIN,TOTAL 0.6 mg/dL (0.2-1.0); CARBON DIOXIDE 32 mmol/L (21-32); CHLORIDE 101 mmol/L (98-107); CREATININE 0.8 mg/dL (0.6-1.3); GLUCOSE 168 mg/dL (74-106); MAGNESIUM 2.8 mg/dL (1.8-2.4); PHOSPHOROUS 1.7 mg/dL (2.5-4.9); POTASSIUM 3.7 mmol/L (3.5-5.1); TOTAL PROTEIN, SERUM 6.6 g/dL (6.4-8.2); UREA NITROGEN, BLOOD 18 mg/dL (7-18)
[2018-05-30] MEDS ORDERED: MAGNESIUM HYDROXIDE 30 ML LIQUID UDC PO PRN (08:30)
[2018-05-30] MEDS: METFORMIN HCL 500 MG TABLET PO SCH ×2 (08:36→17:08)
[2018-05-30] MEDS: DOCUSATE SODIUM 100 MG CAPSULE PO SCH ×2 (08:36→20:30)
[2018-05-30] MEDS: SOTALOL HCL 80 MG TABLET PO SCH ×2 (08:37→17:08)
[2018-05-30] MEDS: INSULIN REGULAR, HUMAN 300 UNIT/3 ML VIAL SQ PRN ×4 (08:46→20:41)
[2018-05-30] MEDS: LEVOTHYROXINE SODIUM 112 MCG TABLET PO SCH (08:58)
[2018-05-30] MEDS ORDERED: MAGNESIUM OXIDE 400 MG TABLET PO SCH (09:00)
[2018-05-30] MEDS ORDERED: Medication Not On Formulary EA (Metformin Hcl 1,000 MG) PO SCH (09:00)
[2018-05-30 09:41] VITALS: BP 119/71
--- NOTE | 2018-05-30 11:52 | NUR ---
WOUND CARE CONSULT: PT PRESENTS WITH RASH AND SOME SKIN IRRITATION TO LEFT BUTTOCK, PRESENT ON ADMISSION. RECOMMENDATIONS MADE FOR SKIN CARE AND PROTECTION. DISCUSSED WITH NURSING STAFF. PT IS CONTINENT. LEFT BUTTOCK AND LEFT ARM ORTHO DRESSINGS DRY AND INTACT. DEFER TO ORTHO FOR LEFT HIP AND LEFT ARM. WILL SEE PRN. WALLACE IN AGREEMENT WITH PLAN OF CARE. Addendum: 05/30/18 at 1154 by JOANN FRANCO RN Amended: Links added.
--- NOTE | 2018-05-30 12:56 | NUR ---
Patient seen and examined by wound nurse ordered lotrim ointment for redness/rashes on left buttocks. turn and positioning. Continue on pain management for left hip sx prior to therapy with good effect. will continue monitor
[2018-05-30] MEDS ORDERED: NEUTRA PHOS PACKET PO ONE (15:15)
[2018-05-30] MEDS: CLOTRIMAZOLE 1% CREAM 30 GM TUBE TOP SCH (17:09)
[2018-05-30] MEDS: RIVAROXABAN 10 MG TABLET PO SCH (17:15)
[2018-05-30 17:30] VITALS: BP 112/67
--- NOTE | 2018-05-30 19:30 | NUR ---
Patient received in wheel chair with family members at bedside. Alert and oriented x 4. C/O pain in left hip and leg. Will medicate for pain. Iv in right forearm assessed and removed per hospital guidelines of IV being placed greater than 72 hours ago. Call light and frequently used items within reach. Will continue to monitor.
[2018-05-30] MEDS: OXYCODONE HCL 10 MG TAB.SR.12H PO SCH (20:31)
--- NOTE | 2018-05-31 02:08 | NUR ---
During rounds, patient C?O itching coming from left buttock rash. Nurse assessed area and found rash to present, and still intact. patient requested lotion to be put of area, informed patient that it was against wound care nurse guidelines. Offered Benadryl to patient to help elevate itching, she agreed. Dr. Boyer notified of condition and ordered 25mg of Benadryl PO Q6HPRN for itching. Will administered to patient. Will continue to monitor.
[2018-05-31] MEDS ORDERED: diphenhydrAMINE 25 MG CAP PO PRN (02:15)
[2018-05-31 05:15] VITALS: BP 96/59
[2018-05-31] MEDS: LEVOTHYROXINE SODIUM 112 MCG TABLET PO SCH (06:16)
[2018-05-31] MEDS: BLOOD SUGAR DIAGNOSTIC 1 EACH STRIP VI SCH ×4 (06:30→20:21)
--- NOTE | 2018-05-31 06:59 | NUR ---
Patient slept on and off throughout the night. Used call light frequently. Assisted with morning ADLs as gently and slowly as possible, but patient still unhappy with nurse. Explained that NORCO PRN is no longer offered, patient confused. Explained that Oxycotin is new [facility] pain medication, and patient upset. Prune juice given to help relieve constipation. All due medications given-tolerated well. Side rails up for safety. Will endorse to oncoming shift accordingly.
[2018-05-31 07:30] VITALS: BP 109/60
[2018-05-31 08:12] LABS: BASOPHILS % (AUTO) 0.5 % (0.0-2.0); EOSINOPHILS # (AUTO) 0.2 K/uL (0.0-0.7); EOSINOPHILS % (AUTO) 4.2 % (0.0-7.0); HEMATOCRIT 29.4 % (31.2-41.9); HEMOGLOBIN 9.9 g/dL (10.9-14.3); LYMPHOCYTES # (AUTO) 1.3 K/uL (20.0-40.0); LYMPHOCYTES % (AUTO) 25.7 % (20.5-51.5); MEAN CORPUSCULAR HEMOGLOBIN 31.3 uug (24.7-32.8); MEAN CORPUSCULAR HGB CONC 34 g/dL (32.3-35.6); MEAN CORPUSCULAR VOLUME 93.3 fL (75.5-95.3); MONOCYTES # (AUTO) 0.4 K/uL (2.0-10.0); MONOCYTES % (AUTO) 7.5 % (0.0-11.0); NEUTROPHILS # (AUTO) 3.1 K/uL (1.8-8.9); NEUTROPHILS % (AUTO) 62.1 % (38.5-71.5); PLATELET COUNT (AUTO) 248 K/uL (179-408); RED BLOOD CELL COUNT(AUTO) 3.15 MIL/uL (3.63-4.92)
[2018-05-31] MEDS: HYDROCODONE/APAP 5-325MG TABLET PO SCH ×4 (08:14→20:20)
[2018-05-31] MEDS: DOCUSATE SODIUM 100 MG CAPSULE PO SCH ×2 (08:14→20:20)
[2018-05-31] MEDS: METFORMIN HCL 500 MG TABLET PO SCH ×2 (08:14→17:00)
[2018-05-31] MEDS: SOTALOL HCL 80 MG TABLET PO SCH ×2 (08:16→16:39)
[2018-05-31] MEDS: ERGOCALCIFEROL 50,000 UNIT CAPSULE PO SCH (08:16)
[2018-05-31] MEDS: CLOTRIMAZOLE 1% CREAM 30 GM TUBE TOP SCH ×2 (08:18→16:42)
[2018-05-31 08:24] LABS: CARBON DIOXIDE 32 mmol/L (21-32); CHLORIDE 99 mmol/L (98-107); CREATININE 0.8 mg/dL (0.6-1.3); GLUCOSE 149 mg/dL (74-106); MAGNESIUM 2.5 mg/dL (1.8-2.4); PHOSPHOROUS 1.9 mg/dL (2.5-4.9); POTASSIUM 3.6 mmol/L (3.5-5.1); UREA NITROGEN, BLOOD 17 mg/dL (7-18)
--- NOTE | 2018-05-31 09:10 | NUR ---
Patient noted sitting up in bed, complaints of left hip and left arm pain, PRN [place] given, no signs of distress noted, assisted with brushing teeth at this time, took all Am medications, call light in reach, bed locked and in lowest position, all needs met at this time
[2018-05-31] MEDS: INSULIN REGULAR, HUMAN 300 UNIT/3 ML VIAL SQ PRN ×2 (12:14→16:49)
[2018-05-31] MEDS: LINZESS 145 MCG PO SCH (12:18)
[2018-05-31] MEDS ORDERED: NEUTRA PHOS PACKET PO ONE (15:30)
[2018-05-31 16:28] VITALS: BP 124/76
[2018-05-31] MEDS: RIVAROXABAN 10 MG TABLET PO SCH (17:07)
--- NOTE | 2018-05-31 18:42 | NUR ---
PRN pain medication given multiple times this shift for left hip and arm pain, z-guard placed on buttocks, daily weight noted at 180.4 lbs via bed scale, no signs of distress noted this shift
[2018-05-31 19:25] VITALS: BP 144/61
--- NOTE | 2018-05-31 19:25 | NUR ---
Received patient with family at bedside. C/O of pain upon assessment, will medicate. Left hip dressing needs to be changed per MD request. Will change. Assisted patient to bathroom with assistance of daughter. Placed on toilet with call chung within reach. Will continue to monitor.
[2018-05-31] MEDS: DIAZEPAM 2 MG TABLET PO PRN (20:20)
[2018-05-31] MEDS: OXYCODONE HCL 10 MG TAB.SR.12H PO SCH (20:20)
--- NOTE | 2018-05-31 21:00 | NUR ---
Wound picture one. Wound care done per protocol, tolerated procedure well. Pressure off affected area.
--- NOTE | 2018-05-31 21:02 | NUR ---
Patient and daughter request nurse change. SBAR given to new nurse. New nurse will continue to monitor patient.
--- NOTE | 2018-05-31 21:15 | NUR ---
Took over care per patient/family request. Safety measure and fall precaution maintained. Kept comfortable.
[2018-06-01 04:54] VITALS: BP 117/63
[2018-06-01] MEDS: LEVOTHYROXINE SODIUM 112 MCG TABLET PO SCH (06:34)
[2018-06-01] MEDS: BLOOD SUGAR DIAGNOSTIC 1 EACH STRIP VI SCH ×4 (06:40→21:09)
--- NOTE | 2018-06-01 06:59 | NUR ---
Shift End Report: Vs stable. Very needy, demanding and attention seeker patient. Assisted and attended all needs. No fall/injury. No s/s of hypo/hyperglycemia. Left hip dressing dry and intact. No complaint of pain. No significant event reported all night. Continue current rehab plan of care.
[2018-06-01 07:30] LABS: CARBON DIOXIDE 28 mmol/L (21-32); CHLORIDE 100 mmol/L (98-107); CREATININE 0.8 mg/dL (0.6-1.3); GLUCOSE 154 mg/dL (74-106); PHOSPHOROUS 2.3 mg/dL (2.5-4.9); POTASSIUM 3.9 mmol/L (3.5-5.1); UREA NITROGEN, BLOOD 17 mg/dL (7-18)
[2018-06-01 08:00] VITALS: BP 114/66
[2018-06-01] MEDS: DOCUSATE SODIUM 100 MG CAPSULE PO SCH ×2 (08:36→21:03)
[2018-06-01] MEDS: HYDROCODONE/APAP 5-325MG TABLET PO SCH ×4 (08:36→21:04)
[2018-06-01] MEDS: METFORMIN HCL 500 MG TABLET PO SCH ×2 (08:36→16:47)
[2018-06-01] MEDS: CALCIUM CARBONATE 500 MG TAB.CHEW PO PRN ×2 (08:37→16:32)
[2018-06-01] MEDS: LINZESS 145 MCG PO SCH (08:37)
[2018-06-01] MEDS: INSULIN REGULAR, HUMAN 300 UNIT/3 ML VIAL SQ PRN ×3 (08:42→21:26)
--- NOTE | 2018-06-01 09:41 | NUR ---
Patient noted sitting up in bed, took all medications this morning, complaints of pain in left arm and leg, scheduled [place] given, no signs of distress noted, call light in reach, bed locked and in lowest positon
[2018-06-01] MEDS: SOTALOL HCL 80 MG TABLET PO SCH ×2 (11:08→16:33)
[2018-06-01] MEDS: CLOTRIMAZOLE 1% CREAM 30 GM TUBE TOP SCH ×2 (11:09→16:34)
--- NOTE | 2018-06-01 13:49 | NUR ---
INTERDISCIPLINARY TEAM CONFERENCE
[2018-06-01 16:00] VITALS: BP 127/77
[2018-06-01] MEDS ORDERED: NEUTRA PHOS PACKET PO ONE (16:00)
[2018-06-01] MEDS: RIVAROXABAN 10 MG TABLET PO SCH (16:47)
[2018-06-01] MEDS: OXYCODONE HCL 10 MG TAB.SR.12H PO SCH (21:03)
[2018-06-01 22:34] VITALS: BP 115/73
[2018-06-02 06:00] VITALS: BP 169/73
[2018-06-02] MEDS: LEVOTHYROXINE SODIUM 112 MCG TABLET PO SCH (06:25)
[2018-06-02] MEDS: BLOOD SUGAR DIAGNOSTIC 1 EACH STRIP VI SCH ×4 (06:33→21:05)
--- NOTE | 2018-06-02 06:52 | NUR ---
aaox4 needs attended. OOB to the BR with walker. Voiding well. No BM noted this shift. passing gas only. Dressing change to left hip. ebenezer intact. On pain management. Medicated for pain as ordered. Tolerated po meds well. kept comfortable. fall precautions maintained. siderails up for safety.
[2018-06-02 07:25] LABS: CARBON DIOXIDE 28 mmol/L (21-32); CHLORIDE 100 mmol/L (98-107); CREATININE 0.8 mg/dL (0.6-1.3); GLUCOSE 153 mg/dL (74-106); PHOSPHOROUS 2.8 mg/dL (2.5-4.9); POTASSIUM 4.9 mmol/L (3.5-5.1); UREA NITROGEN, BLOOD 18 mg/dL (7-18)
[2018-06-02] MEDS: INSULIN REGULAR, HUMAN 300 UNIT/3 ML VIAL SQ PRN ×2 (08:29→21:12)
[2018-06-02] MEDS: DOCUSATE SODIUM 100 MG CAPSULE PO SCH ×2 (08:30→21:07)
[2018-06-02] MEDS: HYDROCODONE/APAP 5-325MG TABLET PO SCH ×4 (08:31→21:00)
[2018-06-02] MEDS: LINZESS 145 MCG PO SCH (08:33)
[2018-06-02] MEDS: SOTALOL HCL 80 MG TABLET PO SCH ×2 (08:33→17:00)
[2018-06-02] MEDS: CLOTRIMAZOLE 1% CREAM 30 GM TUBE TOP SCH ×2 (08:41→17:58)
[2018-06-02] MEDS: METFORMIN HCL 500 MG TABLET PO SCH ×2 (08:42→18:03)
[2018-06-02] MEDS: DEXILANT 60 MG PO SCH (12:06)
--- NOTE | 2018-06-02 13:55 | NUR ---
INTERDISCIPLINARY TEAM CONFERENCE
--- NOTE | 2018-06-02 14:11 | NUR ---
PT in physical therapy
--- NOTE | 2018-06-02 14:11 | NUR ---
pt in rehab
[2018-06-02 15:01] LABS: BASOPHILS # (AUTO) 0.1 K/uL (0.0-8.0); BASOPHILS % (AUTO) 1.5 % (0.0-2.0); EOSINOPHILS # (AUTO) 0.2 K/uL (0.0-0.7); EOSINOPHILS % (AUTO) 3.5 % (0.0-7.0); HEMATOCRIT 29.3 % (31.2-41.9); HEMOGLOBIN 9.9 g/dL (10.9-14.3); MEAN CORPUSCULAR HEMOGLOBIN 31.8 uug (24.7-32.8); MEAN CORPUSCULAR HGB CONC 34 g/dL (32.3-35.6); MEAN CORPUSCULAR VOLUME 94.6 fL (75.5-95.3); MONOCYTES # (AUTO) 0.5 K/uL (2.0-10.0); MONOCYTES % (AUTO) 7.9 % (0.0-11.0); NEUTROPHILS # (AUTO) 3.9 K/uL (1.8-8.9); NEUTROPHILS % (AUTO) 57.1 % (38.5-71.5); PLATELET COUNT (AUTO) 350 K/uL (179-408); WHITE BLOOD COUNT (AUTO) 6.8 K/uL (3.8-11.8)
[2018-06-02] MEDS: DIAZEPAM 2 MG TABLET PO PRN (15:51)
--- NOTE | 2018-06-02 16:05 | NUR ---
AFTERNOON DEXILANT NOT GIVEN SHE TOOK ONE THIS AM WHEN THE SON BROUGHT HER PILLS IN. WILL TAKE NEXT DOSE TOMORROW ORDERED
[2018-06-02] MEDS: RIVAROXABAN 10 MG TABLET PO SCH (18:06)
--- NOTE | 2018-06-02 19:21 | NUR ---
SHE MISSED HER US. FIRST REFUSED WHEN THEY CAME BUT AFTER SPEAKING TO THE MD SHE AGREED TO HAVE IT DONE. THE US TECH SAID THEY WOULD COME BACK BUT NO ONE RETURNED. CALLED THE RADIOLOGY DEPT AT [phone] I WAS TOLD THE THE US DEPT WAS CLOSED FOR THE DAY. HE SPOKE WITH MD DANG HE SAID IT WAS OK FOR THE US TO BE DONE TOMORROW. I LET THE PT AND HER DAUGHTERS KNOW AND THEY AGREED. NEGATIVE FOR PATRICIA SIGNS, NO C/O PAIN ON AMBULATION. NO TEMPERATURE CHANGES WITHIN THE EXTREMITY. WITH MINIMAL SWELLING THAT OCCURS POST OP.
--- NOTE | 2018-06-02 19:30 | NUR ---
Daughter verbalized concerns about patients left leg being swollen and slightly discolored . Patient is able to move toes on left foot. Surgical site is clean and intact. No bleeding noted. No c/o pain and discomfort at this time. No acute distress noted. Dr. White already aware of current situation, but made aware again of daughters concern. Per MD CBC is normal, no blood loss or infection. Patient is on anticoagulation to prevent blood clots. Message is relayed to daughter and patient and they both verbalize understanding. All needs attended to promptly. Call light within reach. Will continue to monitor.
[2018-06-02 20:00] VITALS: BP 110/70
--- NOTE | 2018-06-02 20:00 | NUR ---
Patient assisted to bathroom with walker. Tolerated well. No c/o pain and discomfort to left foot at this time. Will continue to monitor.
--- NOTE | 2018-06-02 20:38 | NUR ---
Clarified medication order with Dr. White for [place] 5-325mg PO QID and OxyContin 10mg PO HS because both are scheduled to be given at 2100. Per , okay to skip dose for Baisden with new orders to change times for Bais[place] 5-325mg to be given at 0800, 1200, 1600, 2000 and OxyContin to be given at 2200. New orders noted and carried out.
[2018-06-02] MEDS: OXYCODONE HCL 10 MG TAB.SR.12H PO SCH (21:08)
[2018-06-03] MEDS: ACETAMINOPHEN 325 MG TABLET PO PRN ×2 (02:57→14:12)
[2018-06-03 04:00] VITALS: BP 133/62
[2018-06-03] MEDS: LEVOTHYROXINE SODIUM 112 MCG TABLET PO SCH (06:36)
[2018-06-03] MEDS: DEXILANT 60 MG PO SCH (06:37)
[2018-06-03] MEDS: BLOOD SUGAR DIAGNOSTIC 1 EACH STRIP VI SCH ×4 (06:41→20:23)
--- NOTE | 2018-06-03 06:59 | NUR ---
Patient slept comfortably throughout the night. No c/o pain and discomfort. No acute distress. No SOB. Assisted to bathroom as needed with walker throughout the night. Tolerated well. BS is 111. No coverage needed. Swelling on left foot noted to go down. Will continue to keep legs elevated. All needs attended to promptly. Call light within reach. Will continue to monitor.
[2018-06-03 07:03] LABS: BASOPHILS % (AUTO) 0.4 % (0.0-2.0); EOSINOPHILS # (AUTO) 0.2 K/uL (0.0-0.7); EOSINOPHILS % (AUTO) 4.1 % (0.0-7.0); HEMATOCRIT 28.1 % (31.2-41.9); HEMOGLOBIN 9.5 g/dL (10.9-14.3); LYMPHOCYTES # (AUTO) 2.2 K/uL (20.0-40.0); LYMPHOCYTES % (AUTO) 35.7 % (20.5-51.5); MEAN CORPUSCULAR HEMOGLOBIN 31.7 uug (24.7-32.8); MEAN CORPUSCULAR HGB CONC 34 g/dL (32.3-35.6); MEAN CORPUSCULAR VOLUME 93.3 fL (75.5-95.3); MONOCYTES # (AUTO) 0.6 K/uL (2.0-10.0); MONOCYTES % (AUTO) 9.4 % (0.0-11.0); NEUTROPHILS # (AUTO) 3.1 K/uL (1.8-8.9); NEUTROPHILS % (AUTO) 50.4 % (38.5-71.5); PLATELET COUNT (AUTO) 308 K/uL (179-408); RED BLOOD CELL COUNT(AUTO) 3.01 MIL/uL (3.63-4.92); WHITE BLOOD COUNT (AUTO) 6.1 K/uL (3.8-11.8)
[2018-06-03 07:18] LABS: CARBON DIOXIDE 28 mmol/L (21-32); CHLORIDE 104 mmol/L (98-107); CREATININE 0.8 mg/dL (0.6-1.3); GLUCOSE 125 mg/dL (74-106); MAGNESIUM 1.9 mg/dL (1.8-2.4); PHOSPHOROUS 3.1 mg/dL (2.5-4.9); POTASSIUM 4.1 mmol/L (3.5-5.1); UREA NITROGEN, BLOOD 17 mg/dL (7-18)
[2018-06-03] MEDS ORDERED: HYDROCODONE/APAP 5-325MG TABLET PO SCH (08:00)
[2018-06-03] MEDS: SOTALOL HCL 80 MG TABLET PO SCH ×2 (08:36→16:44)
[2018-06-03] MEDS: DOCUSATE SODIUM 100 MG CAPSULE PO SCH ×2 (08:36→20:18)
[2018-06-03] MEDS: METFORMIN HCL 500 MG TABLET PO SCH ×2 (08:36→17:07)
[2018-06-03] MEDS: HYDROCODONE/APAP 5-325MG TABLET PO SCH ×4 (08:36→20:22)
[2018-06-03] MEDS: LINZESS 145 MCG PO SCH (08:38)
[2018-06-03] MEDS: CLOTRIMAZOLE 1% CREAM 30 GM TUBE TOP SCH ×2 (08:38→16:47)
[2018-06-03 08:54] VITALS: BP 124/75
--- NOTE | 2018-06-03 13:41 | NUR ---
Patient continue on pain management routinely and PRN. Continue therapy for ambulation, ADL and transfer ability. lower extremity CT scan done. awaiting result. not in distress. will continue monitor
[2018-06-03] MEDS: INSULIN REGULAR, HUMAN 300 UNIT/3 ML VIAL SQ PRN (16:36)
[2018-06-03] MEDS: RIVAROXABAN 10 MG TABLET PO SCH (17:07)
[2018-06-03 20:56] VITALS: BP 112/70
[2018-06-03] MEDS: OXYCODONE HCL 10 MG TAB.SR.12H PO SCH (22:05)
--- NOTE | 2018-06-03 22:41 | NUR ---
Received pt in bed, AAO x 4 with daughter at bedside. No acute distress noted. Verbally responsive and able to make needs known. Denies pain or discomfort. All due medications given as ordered, tolerated well. Scheduled pain medications given as ordered with good effect. All safety measures and fall precautions maintained. Assisted to bathroom x 1 with walker and 1 person assist. Call light and all personal belongings within reach. Will continue to monitor.
[2018-06-03] MEDS ORDERED: OXYCODONE HCL 10 MG TAB.SR.12H PO SCH (23:45)
[2018-06-04 04:45] VITALS: BP 144/83
[2018-06-04] MEDS: LEVOTHYROXINE SODIUM 112 MCG TABLET PO SCH (06:24)
[2018-06-04] MEDS: ACETAMINOPHEN 325 MG TABLET PO PRN (06:25)
[2018-06-04] MEDS: BLOOD SUGAR DIAGNOSTIC 1 EACH STRIP VI SCH ×4 (06:30→20:51)
[2018-06-04] MEDS: DEXILANT 60 MG PO SCH (06:30)
[2018-06-04 06:59] LABS: BASOPHILS % (AUTO) 0.4 % (0.0-2.0); EOSINOPHILS # (AUTO) 0.2 K/uL (0.0-0.7); EOSINOPHILS % (AUTO) 3.2 % (0.0-7.0); HEMATOCRIT 29.7 % (31.2-41.9); LYMPHOCYTES % (AUTO) 30.5 % (20.5-51.5); MEAN CORPUSCULAR HEMOGLOBIN 31.7 uug (24.7-32.8); MEAN CORPUSCULAR HGB CONC 34 g/dL (32.3-35.6); MEAN CORPUSCULAR VOLUME 94.1 fL (75.5-95.3); MONOCYTES # (AUTO) 0.5 K/uL (2.0-10.0); MONOCYTES % (AUTO) 7.6 % (0.0-11.0); NEUTROPHILS # (AUTO) 3.7 K/uL (1.8-8.9); NEUTROPHILS % (AUTO) 58.3 % (38.5-71.5); PLATELET COUNT (AUTO) 422 K/uL (179-408); RED BLOOD CELL COUNT(AUTO) 3.16 MIL/uL (3.63-4.92); WHITE BLOOD COUNT (AUTO) 6.4 K/uL (3.8-11.8)
[2018-06-04 07:00] VITALS: BP 114/65
[2018-06-04 07:17] LABS: CARBON DIOXIDE 30 mmol/L (21-32); CHLORIDE 103 mmol/L (98-107); CREATININE 0.8 mg/dL (0.6-1.3); GLUCOSE 141 mg/dL (74-106); MAGNESIUM 1.9 mg/dL (1.8-2.4); PHOSPHOROUS 3.1 mg/dL (2.5-4.9); POTASSIUM 4.6 mmol/L (3.5-5.1); UREA NITROGEN, BLOOD 16 mg/dL (7-18)
[2018-06-04] MEDS: DOCUSATE SODIUM 100 MG CAPSULE PO SCH ×2 (08:47→21:03)
[2018-06-04] MEDS: METFORMIN HCL 500 MG TABLET PO SCH ×2 (08:47→17:09)
[2018-06-04] MEDS: HYDROCODONE/APAP 5-325MG TABLET PO SCH ×4 (08:48→19:00)
[2018-06-04] MEDS: SOTALOL HCL 80 MG TABLET PO SCH ×2 (08:48→17:07)
[2018-06-04] MEDS: CLOTRIMAZOLE 1% CREAM 30 GM TUBE TOP SCH ×2 (08:52→17:09)
[2018-06-04] MEDS: LINZESS 145 MCG PO SCH (08:52)
[2018-06-04] MEDS: RIVAROXABAN 10 MG TABLET PO SCH (17:08)
--- NOTE | 2018-06-04 19:50 | NUR ---
RECEIVED PATIENT AWAKE IN BED. A/O X4. WAS PREVIOUSLY MEDICATED PRIOR TO SHIFT CHANGE WITH NORCO PER DAYSHIFT RN. PATIENT STATED PAIN OF 2/10 ON PAIN SCALE. NORCO EFFECTIVE. DRESSING NOTED TO LEFT HIP, C/D/I/. DVT PUMPS IN PLACE. NO RESP. DISTRESS NOTED. CALL LIGHT IN REACH. ALL NEEDS ATTENDED. WILL CONTINUE TO MONITOR AND ASSESS.
[2018-06-04 20:28] VITALS: BP 103/58
[2018-06-04] MEDS: OXYCODONE HCL 10 MG TAB.SR.12H PO SCH (21:04)
[2018-06-05 05:30] VITALS: BP 144/74
[2018-06-05] MEDS: ACETAMINOPHEN 325 MG TABLET PO PRN (05:35)
[2018-06-05] MEDS: LEVOTHYROXINE SODIUM 112 MCG TABLET PO SCH (06:09)
[2018-06-05] MEDS: BLOOD SUGAR DIAGNOSTIC 1 EACH STRIP VI SCH ×4 (06:31→20:40)
--- NOTE | 2018-06-05 06:43 | NUR ---
PATIENT ASLEEP IN BED. SLEPT WELL. VSS. CALL LIGHT IN REACH. ALL NEEDS ATTENDED. WILL CONTINUE TO MONITOR AND ASSESS.
[2018-06-05] MEDS: DEXILANT 60 MG PO SCH (07:43)
[2018-06-05] MEDS: DOCUSATE SODIUM 100 MG CAPSULE PO SCH ×2 (08:26→20:13)
[2018-06-05] MEDS: HYDROCODONE/APAP 5-325MG TABLET PO SCH ×4 (08:26→20:12)
[2018-06-05] MEDS: METFORMIN HCL 500 MG TABLET PO SCH ×2 (08:27→17:03)
[2018-06-05] MEDS: CLOTRIMAZOLE 1% CREAM 30 GM TUBE TOP SCH ×2 (08:30→17:05)
[2018-06-05] MEDS: LINZESS 145 MCG PO SCH (08:30)
[2018-06-05] MEDS: SOTALOL HCL 80 MG TABLET PO SCH ×2 (08:30→17:04)
--- NOTE | 2018-06-05 10:08 | NUR ---
Patient noted resting in bed, complaints of pain 6/10 in left hip, scheduled [place] given for pain, assisted to restroom and back to wheelchair for breakfast, no signs of distress noted, call light in reach, bed locked and in lowest positon, all needs met at this time.
--- NOTE | 2018-06-05 15:41 | NUR ---
Boat Mechanic Assessment: SW met with patient at bedside to provide support and assess for psychosocial needs. Patient is a 73 year-old female with a medical history of diabetes, hypertension, obesity, osteoporosis, and CVA was admitted to ARU s/p ORIFs of Left comminuted intertochanteric fracture and left wrist impacted comminuted fracture of distal radius. Patient is alert and oriented x4 and presented laying in her hospital bed. Patient reports she had a fall at home that resulted in her fractures. Patient's mood seemed depressed with a flat affect. Patient stated that her main support system is her son, Lamine. Per pt, and prior to her hospitalization, her son "would take care of me," by helping pt to-and-from Dr. appointments, showering, and meals. Patient expressed concern about returning home, stating that she would need "much more assistance" if she were to return home. SW provided education about In-Home Supportive Services to the patient, and patient seemed accepting of the information. Patient asked to speak with Contact Person about placement options vs returning home. MERY collaborated with Lonny JEWELL and informed him that pt and her son would like to speak with him. MERY provided emotional support and counseling to the patient and engaged in active listening. MERY will continue to provide ongoing support to the patient and her family throughout her stay in ARU.
[2018-06-05 16:00] VITALS: BP 121/64
[2018-06-05] MEDS: RIVAROXABAN 10 MG TABLET PO SCH (17:05)
--- NOTE | 2018-06-05 18:34 | NUR ---
INFORMED BY MD DANG TO SCHEDULE URGENT APPOINTMENT WITH MD MAGUIRE TO REMOVED CASTING TO LEFT ARM FOR POSSIBLE ULCERATION VIA TO COMPLAINTS OF PAIN, MD MAGUIRE NOTIFIED WITH ORDERS TO REMOVE CAST AND PLACE A SPLINT ON LEFT ARM Addendum: 06/05/18 at 1907 by MARS ARROYO RN RN ER STAFF INFORMED OF PATIENT'S ORDER TO REMOVED CAST TO LEFT ARM, CLINICAL ASSESSMENT MANAGER STATES, "[facility] WILL BE INFORMED TO REMOVED CAST
[2018-06-05 19:45] VITALS: BP 114/72
--- NOTE | 2018-06-05 19:45 | NUR ---
Patient received in bed, AAO x4. No acute distress or SOB was noted. Farsi speaking. On room air. Complained of pain, rated 7/10, on her left hip and left arm. Patient assessed. Safety measures maintained, Fall precaution observed, Bed in low position, brake and alarm on, side rails up x2 for safety. Continue to monitor.
--- NOTE | 2018-06-05 21:35 | NUR ---
Lamine from the ER removed the cast from the left forearm and put patient's FA in splint. Patient's hand had swelling without any skin wounds.Her family was there.will continue to monitor.
[2018-06-05] MEDS: OXYCODONE HCL 10 MG TAB.SR.12H PO SCH (21:40)
[2018-06-06] MEDS: ACETAMINOPHEN 325 MG TABLET PO PRN (03:34)
[2018-06-06 04:48] VITALS: BP 107/62
--- NOTE | 2018-06-06 05:46 | NUR ---
End of the shift note Patient was stable throughout the shift. No sign of acute distress or SOB was noted. Complained of pain on her arm rated 6/10. Cast removed, put splint on her left FA and hand. Scheduled pain medications given as ordered with good effect. Tylenol 650 mg given at 0330 for her arm pain. V/S checked. Accucheck done, BS 126 at 2100, no insulin coverage based on sliding scale. DVT pump in place. Assisted to bathroom x 3 with walker and 1 person assist. Safety measures maintained. Fall precaution observed. All needs attended promptly. Bed in low position, brake and alarm on, side rails up x2 for safety. Call light and all personal belongings within reach. Will continue to monitor and endorse to the day shift nurse accordingly.
[2018-06-06] MEDS: DEXILANT 60 MG PO SCH (06:33)
[2018-06-06] MEDS: BLOOD SUGAR DIAGNOSTIC 1 EACH STRIP VI SCH ×4 (06:33→20:29)
[2018-06-06] MEDS: LEVOTHYROXINE SODIUM 112 MCG TABLET PO SCH (06:33)
[2018-06-06 08:00] VITALS: BP 109/65
[2018-06-06] MEDS: METFORMIN HCL 500 MG TABLET PO SCH ×2 (08:40→17:13)
[2018-06-06] MEDS: DOCUSATE SODIUM 100 MG CAPSULE PO SCH ×2 (08:40→20:29)
[2018-06-06] MEDS: SOTALOL HCL 80 MG TABLET PO SCH ×2 (08:45→16:32)
[2018-06-06] MEDS: CLOTRIMAZOLE 1% CREAM 30 GM TUBE TOP SCH ×2 (08:47→16:32)
[2018-06-06] MEDS: LINZESS 145 MCG PO SCH (08:48)
[2018-06-06] MEDS: HYDROCODONE/APAP 5-325MG TABLET PO SCH ×4 (09:04→20:29)
--- NOTE | 2018-06-06 09:22 | NUR ---
Received pt in bed. A/OX4. No acute distress noted. Denies CP or SOB. All due medications given as ordered and tolerated well. Pt refused Linziness and pt stated "I'm not comfortable.". No A/R of Xarelto observed. No Insulin coverage this AM 2/2 blood sugar 107. left hip incision clean with no drainage, covered with bordered gauze. Slight swelling noted on lt. hand. Lt. forearm with splint. Skin care rendered. All pt need attended and met. Kept pt. clean and dry. Safety measures maintained. Call light and all frequently used items in place. Will continue to monitor accordingly.
[2018-06-06] MEDS: INSULIN REGULAR, HUMAN 300 UNIT/3 ML VIAL SQ PRN ×2 (11:45→16:34)
[2018-06-06] MEDS ORDERED: BISACODYL 10 MG SUPP.RECT RC PRN (13:30)
[2018-06-06 16:00] VITALS: BP 116/66
[2018-06-06] MEDS: RIVAROXABAN 10 MG TABLET PO SCH (17:14)
--- NOTE | 2018-06-06 18:13 | NUR ---
End of shift: All due medications administered as ordered and tolerated well. No new skin condition noted. Encouraged PO fluid intake. Skin care rendered. Kept pt. clean and dry. Lt. hip noted with 14 ebenezer in total. Participated with PT/OT and tolerated TX well. SCD pump applied for DVT ppx. No s/sx of bleeding 2/2 use of Xarelto. DTR at bedside for emotional support. Call light and all frequently used items within pt. reach. Will endorse to oncoming shift accordingly.
[2018-06-06] MEDS: NEOMY/BACITRAC/POLYMI OINT 28.35 GM TUBE TOP SCH (20:42)
[2018-06-06] MEDS: OXYCODONE HCL 10 MG TAB.SR.12H PO SCH (22:03)
[2018-06-07 04:00] VITALS: BP 133/72
[2018-06-07] MEDS: LEVOTHYROXINE SODIUM 112 MCG TABLET PO SCH (06:20)
[2018-06-07] MEDS: DEXILANT 60 MG PO SCH (06:30)
[2018-06-07] MEDS: BLOOD SUGAR DIAGNOSTIC 1 EACH STRIP VI SCH ×3 (06:37→16:53)
[2018-06-07] MEDS: ACETAMINOPHEN 325 MG TABLET PO PRN ×2 (08:09→15:18)
[2018-06-07] MEDS: METFORMIN HCL 500 MG TABLET PO SCH ×2 (08:10→17:27)
[2018-06-07] MEDS: SOTALOL HCL 80 MG TABLET PO SCH ×2 (08:10→17:27)
[2018-06-07] MEDS: ERGOCALCIFEROL 50,000 UNIT CAPSULE PO SCH (08:11)
[2018-06-07] MEDS: CLOTRIMAZOLE 1% CREAM 30 GM TUBE TOP SCH ×2 (08:12→17:27)
[2018-06-07] MEDS: DOCUSATE SODIUM 100 MG CAPSULE PO SCH ×2 (08:12→20:04)
[2018-06-07] MEDS: NEOMY/BACITRAC/POLYMI OINT 28.35 GM TUBE TOP SCH ×2 (08:13→20:04)
[2018-06-07] MEDS: LINZESS 145 MCG PO SCH (08:15)
[2018-06-07 08:18] VITALS: BP 119/74
[2018-06-07] MEDS: HYDROCODONE/APAP 5-325MG TABLET PO SCH ×4 (08:37→20:04)
--- NOTE | 2018-06-07 09:30 | NUR ---
Received pt in bed. A/OX4. No acute distress noted. Denies CP or SOB. All due medications given as ordered and tolerated well. No Insulin coverage given this AM 2/2 blood sugar lv. left hip incision clean with no drainage and open to air. Lt. forearm with splint. Skin care rendered. All pt need attended and met. Kept pt. clean and dry. Safety measures maintained. Call light and all frequently used items in place. Will continue to monitor accordingly.
[2018-06-07] MEDS: INSULIN REGULAR, HUMAN 300 UNIT/3 ML VIAL SQ PRN ×2 (11:58→16:54)
[2018-06-07 16:00] VITALS: BP 114/68
[2018-06-07] MEDS: RIVAROXABAN 10 MG TABLET PO SCH (17:28)
--- NOTE | 2018-06-07 18:17 | NUR ---
End of shift: All due medications administered as ordered and tolerated well. No new skin condition noted. Encouraged PO fluid intake. Skin care rendered. Kept pt. clean and dry. Seen by Dr. White today with order for Miralax 17 GM PO QD. Orders noted and carried out. Call light and all frequently used items within pt. reach. Will endorse to oncoming shift accordingly.
[2018-06-07] MEDS: OXYCODONE HCL 10 MG TAB.SR.12H PO SCH (22:04)
[2018-06-08] MEDS: ACETAMINOPHEN 325 MG TABLET PO PRN ×3 (04:57→17:45)
[2018-06-08] MEDS: LEVOTHYROXINE SODIUM 112 MCG TABLET PO SCH (07:02)
[2018-06-08] MEDS: DEXILANT 60 MG PO SCH (07:02)
[2018-06-08] MEDS: HYDROCODONE/APAP 5-325MG TABLET PO SCH ×4 (07:59→20:38)
[2018-06-08] MEDS: DOCUSATE SODIUM 100 MG CAPSULE PO SCH ×2 (07:59→20:38)
[2018-06-08] MEDS: METFORMIN HCL 500 MG TABLET PO SCH ×2 (08:00→17:45)
[2018-06-08] MEDS: SOTALOL HCL 80 MG TABLET PO SCH ×2 (08:09→16:06)
[2018-06-08] MEDS: LINZESS 145 MCG PO SCH (09:00)
[2018-06-08] MEDS: MIRALAX 17 GM POWD.PACK PO SCH (09:00)
[2018-06-08] MEDS: CLOTRIMAZOLE 1% CREAM 30 GM TUBE TOP SCH ×2 (09:20→16:17)
[2018-06-08] MEDS: NEOMY/BACITRAC/POLYMI OINT 28.35 GM TUBE TOP SCH ×2 (09:20→22:16)
[2018-06-08 17:08] VITALS: BP 100/58
[2018-06-08] MEDS: RIVAROXABAN 10 MG TABLET PO SCH (17:47)
--- NOTE | 2018-06-08 18:20 | NUR ---
Pt received sitting up in wheelchair this morning. Pt assessed, NAD, or SOB, on RA. VSS. Pt reports pain after returning from bathroom for voiding and BMx2. Tylenol administered Per Md orders. Pt complaint with all routine medication administration refusing only 2 medications. Pt sat up all 3 meals this shift. No change in status. Linens changed. Family visiting at bedside currently. Bed in locked and lowest position, with side rails. All comfort and safety needs met promptly. Wound and skin care provided as ordered. Personal belongings and call light placed within reach. Will continue to monitor and endorse to oncoming rn shift mgr.
[2018-06-08 19:45] VITALS: BP 118/68
--- NOTE | 2018-06-08 19:45 | NUR ---
Patient received sitting in the wheelchair, AAO x4. No acute distress or SOB was noted. Farsi speaking. Her family at the bedside. On room air. Complained of pain, rated 8/10, on her left hip. Assisted her to the bed.Patient assessed. Safety measures maintained, Fall precaution observed, Bed in low position, brake and alarm on, side rails up x2 for safety. Continue to monitor.
[2018-06-08] MEDS: OXYCODONE HCL 10 MG TAB.SR.12H PO SCH (22:16)
[2018-06-09 04:36] VITALS: BP 116/70
--- NOTE | 2018-06-09 06:30 | NUR ---
End of the shift note Patient was stable throughout the shift. No sign of acute distress or SOB was noted. Complained of pain on her hip rated 8/10. Splint on her left FA and hand. Scheduled pain medications given as ordered with good effect. V/S checked. DVT pump in place. Assisted to bathroom as needed with walker and 1 person assist, keep her clean and dry. Safety measures maintained. Fall precaution observed. All needs attended promptly. Bed in low position, brake and alarm on, side rails up x2 for safety. Call light and all personal belongings within reach. Will continue to monitor and endorse to the day shift nurse accordingly.
[2018-06-09] MEDS: LEVOTHYROXINE SODIUM 112 MCG TABLET PO SCH (06:51)
[2018-06-09] MEDS: DEXILANT 60 MG PO SCH (06:51)
[2018-06-09 08:01] VITALS: BP 124/63
[2018-06-09] MEDS: METFORMIN HCL 500 MG TABLET PO SCH ×2 (08:24→17:01)
[2018-06-09] MEDS: DOCUSATE SODIUM 100 MG CAPSULE PO SCH ×2 (08:24→20:49)
[2018-06-09] MEDS: SOTALOL HCL 80 MG TABLET PO SCH ×2 (08:24→16:49)
[2018-06-09] MEDS: HYDROCODONE/APAP 5-325MG TABLET PO SCH ×4 (08:25→20:49)
[2018-06-09] MEDS: MIRALAX 17 GM POWD.PACK PO SCH (08:26)
[2018-06-09] MEDS: LINZESS 145 MCG PO SCH (08:26)
[2018-06-09] MEDS: CLOTRIMAZOLE 1% CREAM 30 GM TUBE TOP SCH ×2 (08:27→17:01)
[2018-06-09] MEDS: NEOMY/BACITRAC/POLYMI OINT 28.35 GM TUBE TOP SCH ×2 (08:27→20:50)
--- NOTE | 2018-06-09 13:20 | NUR ---
INTERDISCIPLINARY TEAM CONFERENCE
[2018-06-09] MEDS ORDERED: DIAZEPAM 2 MG TABLET PO SCH (17:00)
[2018-06-09] MEDS: RIVAROXABAN 10 MG TABLET PO SCH (17:01)
[2018-06-09] MEDS ORDERED: RIVAROXABAN 15 MG TABLET PO SCH ×2 (18:00)
[2018-06-09] MEDS ORDERED: DIAZEPAM 2 MG TABLET PO PRN (18:30)
--- NOTE | 2018-06-09 18:49 | NUR ---
Patient continue therapy for ambulation, ADL and transfer ability. MD White seen and examined the patient ordered temazepam at night and diazepam for anxiety PRN. not in distress. Continue on pain management norco 5-325mg QID routinely. refuse to take this afternoon. will continue monitor
--- NOTE | 2018-06-09 19:38 | NUR ---
MD White hold diazepam for anxiety PRN.
[2018-06-09 19:40] VITALS: BP 110/65
--- NOTE | 2018-06-09 19:41 | NUR ---
Patient received in bed, AAO x4. No acute distress or SOB was noted. Farsi speaking. Her family at the bedside. On room air. Complained of pain, rated 8/10, on her left hip. Patient assessed. V/S checked. Safety measures maintained, Fall precaution observed, Bed in low position, brake and alarm on, side rails up x2 for safety. Continue to monitor.
[2018-06-09] MEDS ORDERED: DEXTROSE 50% 50 ML DISP.SYRIN IV PRN (19:45)
[2018-06-09] MEDS ORDERED: Z GUARD REMEDY PASTE 57 GM TUBE TOP PRN (20:30)
[2018-06-09] MEDS: BLOOD SUGAR DIAGNOSTIC 1 EACH STRIP VI SCH (20:52)
[2018-06-09] MEDS: TEMAZEPAM 15 MG CAPSULE PO SCH (21:58)
[2018-06-09] MEDS: OXYCODONE HCL 10 MG TAB.SR.12H PO SCH (21:58)
[2018-06-10] MEDS: ACETAMINOPHEN 325 MG TABLET PO PRN (00:39)
[2018-06-10 06:15] VITALS: BP 126/74
[2018-06-10] MEDS: DEXILANT 60 MG PO SCH (06:53)
[2018-06-10] MEDS: LEVOTHYROXINE SODIUM 112 MCG TABLET PO SCH (06:53)
[2018-06-10] MEDS: BLOOD SUGAR DIAGNOSTIC 1 EACH STRIP VI SCH ×4 (06:54→21:25)
--- NOTE | 2018-06-10 06:55 | NUR ---
End of the shift note Patient was stable throughout the shift and had a good sleep last night. No sign of acute distress or SOB was noted. Complained of pain on her hip rated 8/10. Splint on her left FA and hand. Scheduled pain medications given as ordered with good effect. V/S checked. Accu check done BS 106 at 2100 AND 111 AT 0630, No coverage based on insulin sliding scale. DVT pump in place. Assisted to bathroom as needed with walker and 1 person assist, keep her clean and dry. Safety measures maintained. Fall precaution observed. All needs attended promptly. Bed in low position, brake and alarm on, side rails up x2 for safety. Call light and all personal belongings within reach. Will continue to monitor and endorse to the day shift nurse accordingly.
[2018-06-10] MEDS: INSULIN REGULAR, HUMAN 300 UNIT/3 ML VIAL SQ PRN ×3 (07:41→21:26)
[2018-06-10] MEDS: MIRALAX 17 GM POWD.PACK PO SCH (09:00)
[2018-06-10] MEDS: LINZESS 145 MCG PO SCH (09:00)
[2018-06-10] MEDS ORDERED: MAGNESIUM CITRATE 296 ML BOTTLE PO ONE (09:00)
--- NOTE | 2018-06-10 09:00 | NUR ---
Received patient, awake alert x3-4. With pain over left arm and left leg rated as 8/10. Routine [place] given. Not in any form of distress. Intact and dry dressing over left hip, healing well. Morning care done. Will continue to monitor.
[2018-06-10] MEDS: HYDROCODONE/APAP 5-325MG TABLET PO SCH ×4 (09:26→19:42)
[2018-06-10] MEDS: DOCUSATE SODIUM 100 MG CAPSULE PO SCH ×2 (09:26→21:55)
[2018-06-10] MEDS: METFORMIN HCL 500 MG TABLET PO SCH ×2 (09:26→17:45)
[2018-06-10] MEDS: SOTALOL HCL 80 MG TABLET PO SCH ×2 (09:27→17:46)
[2018-06-10] MEDS: CLOTRIMAZOLE 1% CREAM 30 GM TUBE TOP SCH ×2 (09:34→17:46)
[2018-06-10] MEDS: NEOMY/BACITRAC/POLYMI OINT 28.35 GM TUBE TOP SCH ×2 (09:34→21:27)
--- NOTE | 2018-06-10 10:55 | NUR ---
Up with physical therapy. Tolerating well. Was able to ambulate to the gym.
[2018-06-10] MEDS: RIVAROXABAN 10 MG TABLET PO SCH (17:52)
--- NOTE | 2018-06-10 18:00 | NUR ---
With daughter at bedside. Patient refused scheduled [place] medication at this time. Patient claimed she is not in pain. PRN Benadryl given over buttocks said it was itching.
[2018-06-10 19:42] VITALS: BP 132/62
--- NOTE | 2018-06-10 20:30 | NUR ---
Received pt resting in bed. AAO x3-4. Daughter at bedside. No acute distress noted. C/o pain 7/10 on left hip. Routine [place] given. Safety measures maintained. Call light and personal belongings within reach. Will continue to monitor.
[2018-06-10] MEDS: OXYCODONE HCL 10 MG TAB.SR.12H PO SCH (21:55)
[2018-06-10] MEDS: TEMAZEPAM 15 MG CAPSULE PO SCH (21:56)
[2018-06-11 04:30] VITALS: BP 143/77
[2018-06-11] MEDS: DEXILANT 60 MG PO SCH (06:31)
[2018-06-11] MEDS: LEVOTHYROXINE SODIUM 112 MCG TABLET PO SCH (06:31)
[2018-06-11] MEDS: BLOOD SUGAR DIAGNOSTIC 1 EACH STRIP VI SCH ×4 (06:36→22:28)
--- NOTE | 2018-06-11 06:41 | NUR ---
Pt slept comfortably at night. Assisted to the bathroom using walker. Had x1 BM. Dressing changed, surgical site healing well, no s/s of infection. All due meds given as ordered. Blood sugar WNL. All needs attended to promptly. . Will endorse to oncoming shift. Continue to monitor.
[2018-06-11] MEDS: HYDROCODONE/APAP 5-325MG TABLET PO SCH ×4 (07:51→19:33)
[2018-06-11] MEDS: DOCUSATE SODIUM 100 MG CAPSULE PO SCH ×2 (08:24→21:57)
[2018-06-11] MEDS: METFORMIN HCL 500 MG TABLET PO SCH ×2 (08:24→17:00)
[2018-06-11] MEDS: MIRALAX 17 GM POWD.PACK PO SCH (08:25)
[2018-06-11] MEDS: SOTALOL HCL 80 MG TABLET PO SCH ×2 (08:25→16:58)
[2018-06-11] MEDS: CLOTRIMAZOLE 1% CREAM 30 GM TUBE TOP SCH ×2 (08:26→16:59)
[2018-06-11] MEDS: NEOMY/BACITRAC/POLYMI OINT 28.35 GM TUBE TOP SCH ×2 (08:26→22:04)
[2018-06-11] MEDS: LINZESS 145 MCG PO SCH (08:26)
[2018-06-11 08:34] VITALS: BP 122/70
--- NOTE | 2018-06-11 08:56 | NUR ---
Received pt in bed. A/OX4. No acute distress noted. Denies CP or SOB. All due medications given as ordered and tolerated well. No Insulin coverage given this AM 2/2 blood sugar lv. left hip incision clean with no drainage covered with mepilex. Lt. forearm with splint. Skin care rendered. All pt need attended and met. Kept pt. clean and dry. Safety measures maintained. Call light and all frequently used items in place. Will continue to monitor accordingly.
[2018-06-11] MEDS: INSULIN REGULAR, HUMAN 300 UNIT/3 ML VIAL SQ PRN ×3 (11:23→22:29)
--- NOTE | 2018-06-11 11:30 | NUR ---
Order received from Dr. White for OOP. Order noted and carried out. Pt. out of facility at around 1130 with DTR. Pt. left via W/C in stable condition to visit [facility].
[2018-06-11 16:00] VITALS: BP 106/63
[2018-06-11] MEDS: RIVAROXABAN 10 MG TABLET PO SCH (17:00)
--- NOTE | 2018-06-11 19:09 | NUR ---
End of shift: Pt. returned to unit @ 1400 in stable condition with DTR. All due medications administered as ordered and tolerated well. No new skin condition noted. Encouraged PO fluid intake. Skin care rendered. Kept pt. clean and dry. Call light and all frequently used items within pt. reach. Will endorse to oncoming shift accordingly.
--- NOTE | 2018-06-11 19:37 | NUR ---
Received pt resting in bed. AAO x4. Daughter at bedside. No acute distress noted. C/o 6/10 pain on left hip. Routine [place] given. VS WNL. Both heels offloaded. Turned and repositioned. Safety measures maintained. Call light and personal belongings within reach. Will continue to monitor.
[2018-06-11 20:15] VITALS: BP 103/61
[2018-06-11] MEDS: TEMAZEPAM 15 MG CAPSULE PO SCH (21:58)
[2018-06-11] MEDS: OXYCODONE HCL 20 MG TAB.SR.12H PO SCH (22:05)
[2018-06-12 05:00] VITALS: BP 124/67
[2018-06-12] MEDS: LEVOTHYROXINE SODIUM 112 MCG TABLET PO SCH (06:32)
[2018-06-12] MEDS: BLOOD SUGAR DIAGNOSTIC 1 EACH STRIP VI SCH ×4 (06:32→20:57)
[2018-06-12] MEDS: DEXILANT 60 MG PO SCH (06:32)
[2018-06-12] MEDS: HYDROCODONE/APAP 5-325MG TABLET PO SCH ×4 (07:40→20:19)
[2018-06-12 07:44] LABS: ALANINE AMINOTRANSFERASE 11 U/L (14-59); ALKALINE PHOSPHATASE 149 U/L (50-136); ASPARTATE AMINOTRANSFERASE 12 U/L (15-37); BILIRUBIN,TOTAL 0.4 mg/dL (0.2-1.0); CARBON DIOXIDE 29 mmol/L (21-32); CHLORIDE 104 mmol/L (98-107); CREATININE 0.8 mg/dL (0.6-1.3); GLUCOSE 94 mg/dL (74-106); MAGNESIUM 1.8 mg/dL (1.8-2.4); PHOSPHOROUS 3.3 mg/dL (2.5-4.9); POTASSIUM 4.5 mmol/L (3.5-5.1); TOTAL PROTEIN, SERUM 6.7 g/dL (6.4-8.2); UREA NITROGEN, BLOOD 16 mg/dL (7-18)
[2018-06-12 07:58] LABS: BASOPHILS % (AUTO) 0.5 % (0.0-2.0); EOSINOPHILS # (AUTO) 0.2 K/uL (0.0-0.7); EOSINOPHILS % (AUTO) 3.3 % (0.0-7.0); HEMATOCRIT 27.3 % (31.2-41.9); HEMOGLOBIN 9.1 g/dL (10.9-14.3); LYMPHOCYTES # (AUTO) 2.4 K/uL (20.0-40.0); LYMPHOCYTES % (AUTO) 49.1 % (20.5-51.5); MEAN CORPUSCULAR HEMOGLOBIN 31.8 uug (24.7-32.8); MEAN CORPUSCULAR HGB CONC 34 g/dL (32.3-35.6); MONOCYTES # (AUTO) 0.4 K/uL (2.0-10.0); MONOCYTES % (AUTO) 8.5 % (0.0-11.0); NEUTROPHILS # (AUTO) 1.9 K/uL (1.8-8.9); NEUTROPHILS % (AUTO) 38.6 % (38.5-71.5); PLATELET COUNT (AUTO) 443 K/uL (179-408); RED BLOOD CELL COUNT(AUTO) 2.88 MIL/uL (3.63-4.92)
[2018-06-12] MEDS: MIRALAX 17 GM POWD.PACK PO SCH (08:16)
[2018-06-12] MEDS: METFORMIN HCL 500 MG TABLET PO SCH ×2 (08:16→17:10)
[2018-06-12] MEDS: DOCUSATE SODIUM 100 MG CAPSULE PO SCH ×2 (08:16→20:20)
[2018-06-12] MEDS: NEOMY/BACITRAC/POLYMI OINT 28.35 GM TUBE TOP SCH ×2 (08:17→20:59)
[2018-06-12] MEDS: diphenhydrAMINE 2% 28.4 GM CREAM TP PRN (08:17)
[2018-06-12] MEDS: SOTALOL HCL 80 MG TABLET PO SCH ×2 (08:17→16:45)
[2018-06-12] MEDS: CLOTRIMAZOLE 1% CREAM 30 GM TUBE TOP SCH ×2 (08:18→16:46)
[2018-06-12] MEDS: INSULIN REGULAR, HUMAN 300 UNIT/3 ML VIAL SQ PRN ×3 (08:19→21:03)
[2018-06-12 08:36] VITALS: BP 128/62
[2018-06-12] MEDS: LINZESS 145 MCG PO SCH (09:00)
[2018-06-12] MEDS: ACETAMINOPHEN 325 MG TABLET PO PRN (09:16)
--- NOTE | 2018-06-12 10:23 | NUR ---
Received pt in bed. A/OX4. No acute distress noted. Denies CP or SOB. All due medications given as ordered and tolerated well. No s/sx of hypo/hyperglycemia. Left hip incision clean with ebenezer, no drainage or redness around the area and covered with mepilex. Lt. forearm with splint. Skin care rendered. All pt need attended and met. Kept pt. clean and dry. Safety measures maintained. Call light and all frequently used items in place. Will continue to monitor accordingly.
[2018-06-12 17:00] VITALS: BP 128/72
[2018-06-12] MEDS: RIVAROXABAN 10 MG TABLET PO SCH (17:10)
--- NOTE | 2018-06-12 17:46 | NUR ---
End of shift: All due medications administered as ordered and tolerated well. No new skin condition noted. Encouraged PO fluid intake. Skin care rendered. Pt. had lunch in dinning room today. Kept pt. clean and dry. Call light and all frequently used items within pt. reach. Will endorse to oncoming shift accordingly.
--- NOTE | 2018-06-12 19:40 | NUR ---
Patient received in bed, AAO x4. No acute distress or SOB was noted. Farsi speaking. Her family at the bedside. On room air. Complained of pain, rated 7/10, on her left hip. Patient assessed. V/S checked. Safety measures maintained, Fall precaution observed, Bed in low position, brake and alarm on, side rails up x2 for safety. Continue to monitor.
[2018-06-12 19:45] VITALS: BP 125/74
[2018-06-12] MEDS: OXYCODONE HCL 20 MG TAB.SR.12H PO SCH (21:00)
[2018-06-12] MEDS: TEMAZEPAM 15 MG CAPSULE PO SCH (21:48)
[2018-06-13 04:39] VITALS: BP 139/84
[2018-06-13] MEDS: LEVOTHYROXINE SODIUM 112 MCG TABLET PO SCH (06:29)
[2018-06-13] MEDS: DEXILANT 60 MG PO SCH (06:30)
[2018-06-13] MEDS: BLOOD SUGAR DIAGNOSTIC 1 EACH STRIP VI SCH ×4 (06:31→20:31)
--- NOTE | 2018-06-13 06:52 | NUR ---
End of the shift note Patient was stable throughout the shift and had a good sleep last night. No sign of acute distress or SOB was noted. Complained of pain on her hip rated 8/10. Splint on her left FA and hand. Scheduled pain medications given as ordered with good effect. V/S checked. Accu check done BS 135 at 2100 with 2 units insulin coverage based on sliding scale and 111 AT 0630, No coverage based on insulin sliding scale. DVT pump in place. Assisted to bathroom as needed with walker and 1 person assist, keep her clean and dry. Safety measures maintained. Fall precaution observed. All needs attended promptly. Bed in low position, brake and alarm on, side rails up x2 for safety. Call light and all personal belongings within reach. Will continue to monitor and endorse to the day shift nurse accordingly.
[2018-06-13] MEDS: HYDROCODONE/APAP 5-325MG TABLET PO SCH ×4 (08:28→20:28)
[2018-06-13] MEDS: METFORMIN HCL 500 MG TABLET PO SCH ×2 (08:28→17:09)
[2018-06-13] MEDS: MIRALAX 17 GM POWD.PACK PO SCH (08:32)
[2018-06-13] MEDS: LINZESS 145 MCG PO SCH (08:32)
[2018-06-13] MEDS: DOCUSATE SODIUM 100 MG CAPSULE PO SCH ×2 (08:32→20:28)
[2018-06-13] MEDS: NEOMY/BACITRAC/POLYMI OINT 28.35 GM TUBE TOP SCH ×2 (08:33→21:52)
[2018-06-13] MEDS: CLOTRIMAZOLE 1% CREAM 30 GM TUBE TOP SCH ×2 (08:33→16:36)
[2018-06-13] MEDS: SOTALOL HCL 80 MG TABLET PO SCH ×2 (09:00→16:38)
[2018-06-13 10:07] VITALS: BP 120/69
--- NOTE | 2018-06-13 10:57 | NUR ---
Received patient sleeping in bed in stable condition. Refuse blood extraction this morning despite of encourage and education. will continue monitor
--- NOTE | 2018-06-13 15:03 | NUR ---
Patient continue therapy for ambulation, ADL, transfer ability. Continue pain management norco 5-325mg QID. no complaint voiced. will continue monitor
[2018-06-13] MEDS: RIVAROXABAN 10 MG TABLET PO SCH (17:13)
[2018-06-13 19:49] VITALS: BP 108/69
[2018-06-13] MEDS: INSULIN REGULAR, HUMAN 300 UNIT/3 ML VIAL SQ PRN (20:33)
[2018-06-13] MEDS: TEMAZEPAM 15 MG CAPSULE PO SCH (21:52)
[2018-06-13] MEDS ORDERED: OXYCODONE HCL 20 MG TAB.SR.12H PO ONE (22:52)
[2018-06-13] MEDS: OXYCODONE HCL 20 MG TAB.SR.12H PO SCH (22:58)
[2018-06-14] MEDS: ACETAMINOPHEN 325 MG TABLET PO PRN (03:45)
[2018-06-14 04:00] VITALS: BP 101/64
[2018-06-14] MEDS: DEXILANT 60 MG PO SCH (06:30)
[2018-06-14] MEDS: LEVOTHYROXINE SODIUM 112 MCG TABLET PO SCH (06:30)
[2018-06-14] MEDS: BLOOD SUGAR DIAGNOSTIC 1 EACH STRIP VI SCH ×4 (06:46→20:40)
--- NOTE | 2018-06-14 08:30 | NUR ---
Received patient, awake, alert x4. Not in any form of distress. Morning care done, garrison-care done, oral care done. Surgical dressing changed, wound still with ebenezer dry and no discharges noted. With pain over left hip and left shoulder area, routine [place] given.
[2018-06-14] MEDS: METFORMIN HCL 500 MG TABLET PO SCH ×2 (08:40→17:10)
[2018-06-14] MEDS: DOCUSATE SODIUM 100 MG CAPSULE PO SCH ×2 (08:40→20:39)
[2018-06-14] MEDS: HYDROCODONE/APAP 5-325MG TABLET PO SCH ×4 (08:40→20:00)
[2018-06-14] MEDS: ERGOCALCIFEROL 50,000 UNIT CAPSULE PO SCH (08:41)
[2018-06-14] MEDS: SOTALOL HCL 80 MG TABLET PO SCH ×2 (08:41→17:10)
[2018-06-14] MEDS: MIRALAX 17 GM POWD.PACK PO SCH (08:41)
[2018-06-14] MEDS: NEOMY/BACITRAC/POLYMI OINT 28.35 GM TUBE TOP SCH ×2 (08:49→20:40)
[2018-06-14] MEDS: CLOTRIMAZOLE 1% CREAM 30 GM TUBE TOP SCH ×2 (08:49→17:21)
[2018-06-14] MEDS: LINZESS 145 MCG PO SCH (08:50)
[2018-06-14 09:00] VITALS: BP 129/80
--- NOTE | 2018-06-14 10:00 | NUR ---
Up with occupational therapy, tolerating well. No complaints of pain noted. Was able to ambulate well.
[2018-06-14] MEDS: INSULIN REGULAR, HUMAN 300 UNIT/3 ML VIAL SQ PRN ×2 (12:02→16:54)
--- NOTE | 2018-06-14 13:33 | NUR ---
Obtained orders from Dr. Zhang to take out ebenezer and put steri-strips.
--- NOTE | 2018-06-14 15:30 | NUR ---
Showered with minimal assistance. V[place] removed as ordered. No bleeding or discharges noted. Secured wound with steri-strips
[2018-06-14 16:00] VITALS: BP 116/64
--- NOTE | 2018-06-14 16:30 | NUR ---
Refused [place] at this time and said she will take it later on. Said she is not in pain right now.
[2018-06-14] MEDS: RIVAROXABAN 10 MG TABLET PO SCH (17:10)
[2018-06-14 19:37] VITALS: BP 108/61
--- NOTE | 2018-06-14 19:44 | NUR ---
Received pt in bed, appearing to be asleep but easily arousable to verbal stimuli and light touch. No acute distress noted. Verbally responsive and able to make needs known. Denies pain or discomfort. No facial indications of pain noted at this time. All safety measures and fall precautions maintained. Call light and all personal belongings within reach. Will continue to monitor.
[2018-06-14] MEDS: OXYCODONE HCL 20 MG TAB.SR.12H PO SCH (21:21)
[2018-06-14] MEDS: TEMAZEPAM 15 MG CAPSULE PO SCH (21:53)
[2018-06-15 06:10] VITALS: BP 108/71
[2018-06-15] MEDS: LEVOTHYROXINE SODIUM 112 MCG TABLET PO SCH (06:26)
[2018-06-15] MEDS: DEXILANT 60 MG PO SCH (06:30)
[2018-06-15] MEDS: BLOOD SUGAR DIAGNOSTIC 1 EACH STRIP VI SCH ×2 (06:41→11:56)
--- NOTE | 2018-06-15 08:05 | NUR ---
Received patient, awake, alert x4. Not in any form of distress. With pain over left hip area and left shoulder area, routine [place] given. Surgical wound dry and clean no discharges noted. For discharge today.
[2018-06-15] MEDS: DOCUSATE SODIUM 100 MG CAPSULE PO SCH (08:29)
[2018-06-15] MEDS: METFORMIN HCL 500 MG TABLET PO SCH (08:29)
[2018-06-15] MEDS: HYDROCODONE/APAP 5-325MG TABLET PO SCH ×2 (08:29→12:12)
[2018-06-15] MEDS: MIRALAX 17 GM POWD.PACK PO SCH (08:30)
[2018-06-15] MEDS: SOTALOL HCL 80 MG TABLET PO SCH (08:30)
[2018-06-15] MEDS: LINZESS 145 MCG PO SCH (08:46)
[2018-06-15] MEDS: NEOMY/BACITRAC/POLYMI OINT 28.35 GM TUBE TOP SCH (08:46)
[2018-06-15] MEDS: CLOTRIMAZOLE 1% CREAM 30 GM TUBE TOP SCH (08:46)
[2018-06-15] MEDS: diphenhydrAMINE 2% 28.4 GM CREAM TP PRN (08:46)
[2018-06-15 09:00] VITALS: BP 113/58
--- NOTE | 2018-06-15 11:37 | NUR ---
Up with physical therapy, was able to ambulate. Tolerated well.
[2018-06-15] MEDS: INSULIN REGULAR, HUMAN 300 UNIT/3 ML VIAL SQ PRN (11:57)
--- NOTE | 2018-06-15 15:30 | NUR ---
Discharge order obtained from Dr. White. Discharge instructions given to Norma, daughter. Discharge packet and education given to Norma daughter and instructed to follow up with PCP Dr. Salazar on 06/19/18 at 14:[address] Zhang on 06/01/18 at 11:15. Prescription and list of medications TMS given to daughter Norma. Went home with wheelchair and front-wheel walker with platform attachment. Routine discharge care done.
[2018-06-16] MEDS ORDERED: OXYC20TA58 PO (16:34)
[2018-06-16] MEDS ORDERED: CLOT15CR63 TP (16:34)
[2018-06-16] MEDS ORDERED: HUMULIN R SQ (16:34)
[2018-06-16] MEDS ORDERED: LINA145C PO (16:34)
[2018-06-16] MEDS ORDERED: NEOM1PAC2 TP (16:34)
[2018-06-16] MEDS ORDERED: POLY17PO4 PO (16:34)
[2018-06-16] MEDS ORDERED: BISA10SU21 RC (16:34)
== END 2018-06-15 15:30 | DRG 560 ==
LOC: UNDODISIN 06-13 07:36
PROVIDERS: ADMIT Physical Medicine & Rehabilitation Pain Medicine; ATTEND Physical Medicine & Rehabilitation Pain Medicine
DX: S72.142D Displaced intertrochanteric fracture of left femur, subsequent encounter for closed fracture with routine healing (principal); D68.59 Other primary thrombophilia; J98.11 Atelectasis; S52.592D Other fractures of lower end of left radius, subsequent encounter for closed fracture with routine healing; S52.612D Displaced fracture of left ulna styloid process, subsequent encounter for closed fracture with routine healing; W18.30XD Fall on same level, unspecified, subsequent encounter; Z79.01 Long term (current) use of anticoagulants; E11.9 Type 2 diabetes mellitus without complications; Z79.84 Long term (current) use of oral hypoglycemic drugs; Z86.73 Personal history of transient ischemic attack (TIA), and cerebral infarction without residual deficits; I48.0 Paroxysmal atrial fibrillation; L08.9 Local infection of the skin and subcutaneous tissue, unspecified; S30.91XD Unspecified superficial injury of lower back and pelvis, subsequent encounter; X58.XXXD Exposure to other specified factors, subsequent encounter; K21.9 Gastro-esophageal reflux disease without esophagitis; D50.9 Iron deficiency anemia, unspecified; Z68.32 Body mass index [BMI] 32.0-32.9, adult; E66.9 Obesity, unspecified; E78.5 Hyperlipidemia, unspecified; E89.0 Postprocedural hypothyroidism; G89.29 Other chronic pain; M51.36 Other intervertebral disc degeneration, lumbar region; I10 Essential (primary) hypertension; I70.0 Atherosclerosis of aorta; K59.00 Constipation, unspecified; Z85.9 Personal history of malignant neoplasm, unspecified; Z96.649 Presence of unspecified artificial hip joint; R26.9 Unspecified abnormalities of gait and mobility; Z88.7 Allergy status to serum and vaccine; M81.0 Age-related osteoporosis without current pathological fracture; Z83.3 Family history of diabetes mellitus
CPT/HCPCS: 36415; 71045; 73700; 83605; 83735; 84100; 85025; 92523; 92526; 97110; 97112; 97116; 97165; 97530; 97535; A4663; J1815; Q0163

== ENCOUNTER 2018-06-16 15:17 | Emergency (ER) | payer MEDICARE, MEDICAID ==
[~2018-06-16] VITALS: Ht 167.6 cm; Wt 81.6 kg
[~2018-06-16 15:17] MED LIST changes: +BENZ1LOZ58 MM; +CALC-494 PO; +CALC300T4 PO; +HYDR-3326 PO; +SIME80TA45 PO
--- NOTE | 2018-06-16 15:51 | NUR ---
PT IS IN ROOM #1A. DR PEREZ EVALUATED THE PT.
[2018-06-16] MEDS ORDERED: IV NORMAL SALINE 1000 ML BAG IV ONE (16:15)
[2018-06-16] MEDS ORDERED: ONDANSETRON IV *ER 4 MG/2 ML VIAL IV ONE (16:15)
[2018-06-16] MEDS ORDERED: ONDANSETRON 4 MG/2 ML VIAL ONE (16:25)
[2018-06-16 16:29] LABS: BASOPHILS % (AUTO) 0.5 % (0.0-2.0); EOSINOPHILS # (AUTO) 0.1 K/uL (0.0-0.7); EOSINOPHILS % (AUTO) 1.8 % (0.0-7.0); HEMATOCRIT 29.1 % (31.2-41.9); HEMOGLOBIN 9.8 g/dL (10.9-14.3); LYMPHOCYTES # (AUTO) 1.3 K/uL (20.0-40.0); LYMPHOCYTES % (AUTO) 22.7 % (20.5-51.5); MEAN CORPUSCULAR HEMOGLOBIN 31.6 uug (24.7-32.8); MEAN CORPUSCULAR HGB CONC 34 g/dL (32.3-35.6); MEAN CORPUSCULAR VOLUME 94.3 fL (75.5-95.3); MONOCYTES # (AUTO) 0.4 K/uL (2.0-10.0); MONOCYTES % (AUTO) 6.9 % (0.0-11.0); NEUTROPHILS % (AUTO) 68.1 % (38.5-71.5); PLATELET COUNT (AUTO) 315 K/uL (179-408); RED BLOOD CELL COUNT(AUTO) 3.08 MIL/uL (3.63-4.92); WHITE BLOOD COUNT (AUTO) 5.8 K/uL (3.8-11.8)
[2018-06-16] MEDS ORDERED: CLOT15CR63 TP (16:34)
[2018-06-16] MEDS ORDERED: BISA10SU21 RC (16:34)
[2018-06-16] MEDS ORDERED: OXYC20TA58 PO (16:34)
[2018-06-16] MEDS ORDERED: LINA145C PO (16:34)
[2018-06-16] MEDS ORDERED: NEOM1PAC2 TP (16:34)
[2018-06-16] MEDS ORDERED: HUMULIN R SQ (16:34)
[2018-06-16] MEDS ORDERED: POLY17PO4 PO (16:34)
[2018-06-16 16:38] LABS: CARBON DIOXIDE 23 mmol/L (21-32); CHLORIDE 103 mmol/L (98-107); CREATININE 0.8 mg/dL (0.6-1.3); GLUCOSE 147 mg/dL (74-106); POTASSIUM 4.1 mmol/L (3.5-5.1); UREA NITROGEN, BLOOD 20 mg/dL (7-18)
[2018-06-16 16:44] LABS: ALANINE AMINOTRANSFERASE 13 U/L (14-59); ALKALINE PHOSPHATASE 193 U/L (50-136); ASPARTATE AMINOTRANSFERASE 13 U/L (15-37); BILIRUBIN,DIRECT 0.1 mg/dL (0.0-0.2); BILIRUBIN,TOTAL 0.3 mg/dL (0.2-1.0); LIPASE 82 U/L (73-393); TOTAL PROTEIN, SERUM 7.6 g/dL (6.4-8.2)
--- NOTE | 2018-06-16 18:36 | NUR ---
DR PEREZ RE-EVALUATED THE PT. PT IS GOING TO BE DISCHARGED TO HER NURSING FACILITY. [facility] WAS CALLED TO TRANSFER THE PT. NOEMI IS 2 HOURS. PT IS RESTING IN THE ER BED . FAMILY AT THE BEDSIDE. D/C INSTRUCTIONS GIVEN TO THE PT AND TO HER RELATIVES.
--- NOTE | 2018-06-16 18:40 | NUR ---
Call placed to [facility], Trip #[id number], ETA 2029.
[2018-06-16] MEDS ORDERED: SOTALOL HCL 80 MG TABLET PO ONE (19:15)
[2018-06-16] MEDS ORDERED: RIVAROXABAN 10 MG TABLET PO SCH (19:15)
[2018-06-16] MEDS ORDERED: SOTALOL HCL 80 MG TABLET ONE (19:21)
[2018-06-16] MEDS ORDERED: RIVAROXABAN 10 MG TABLET ONE (19:21)
[2018-06-16] MEDS ORDERED: HYDROCODONE/APAP 5-325MG TABLET ONE (19:22)
[2018-06-16 19:23] VITALS: BP 127/76
[2018-06-16] MEDS ORDERED: HYDROCODONE/APAP 5-325MG TABLET PO ONE (19:30)
[2018-06-16] MEDS ORDERED: LORAZEPAM 1 MG TABLET ONE (19:39)
[2018-06-16] MEDS ORDERED: LORAZEPAM 0.5 MG TABLET PO ONE (19:45)
--- NOTE | 2018-06-16 19:55 | NUR ---
Dr. Stewart speaking with Dr. Collins.
--- NOTE | 2018-06-16 20:41 | NUR ---
Spoke with Tara from [facility], informed that ETA delayed for unknown reason. New ETA 2100.
--- NOTE | 2018-06-16 21:26 | NUR ---
[facility] arrived, transported patient discharged to home in stable conditon. Written and verbal after care instructions given. Patient verbalizes understanding of instructions.
== END 2018-06-16 21:38 | disposition home or self-care (01) ==
LOC: ER 15:20
DX: F41.9 Anxiety disorder, unspecified (principal); F32.9 Major depressive disorder, single episode, unspecified; R11.2 Nausea with vomiting, unspecified; I10 Essential (primary) hypertension; E11.9 Type 2 diabetes mellitus without complications; G89.29 Other chronic pain; M54.9 Dorsalgia, unspecified; Z88.8 Allergy status to other drugs, medicaments and biological substances; Z79.1 Long term (current) use of non-steroidal anti-inflammatories (NSAID); Z79.891 Long term (current) use of opiate analgesic; Z79.899 Other long term (current) drug therapy
CPT/HCPCS: 36415; 71045; 80048; 80076; 83690; 84484; 85025; 93005 ×2; 96361; 96374; 99284; J2405; 70030-TC; A4663; J7030

== ENCOUNTER 2018-06-23 21:24 | Emergency (ER) | payer MEDICARE, MEDICAID ==
[~2018-06-23] VITALS: Ht 157.5 cm; Wt 78.5 kg
[~2018-06-23 21:24] MED LIST changes: -AZIL1TAB2 PO; -BENZ1LOZ58 MM; +BISA10SU21 RC; -CALC-494 PO; -CHOL50006 PO; +CLOT15CR63 TP; -DOCU-141 PO; +HUMULIN R SQ; -IBUP-23 PO; +LINA145C PO; -LINA290C PO; -MAGN400T26 PO; -MOME13HF2 IH; +NEOM1PAC2 TP; +OXYC20TA58 PO; +POLY17PO4 PO; -TURM1POW PO
--- NOTE | 2018-06-23 21:53 | NUR ---
PT A/OX4, BIB 2 FAMILY MEMBERS FROM [facility], C/O RLE MUSCLE SPASM X 1 DAY. RECENT HX OF L HIP SURGERY 1 MONTH AGO. NO VISIBLE MUSCLE SPASM OF THE RLE AT THIS TIME. VSS. PT DENIES PAIN, C/P, SOB, N/V/D, DIZZINESS, HEADACHE.
--- NOTE | 2018-06-23 22:00 | NUR ---
LEYLA WALLACE AT BEDSIDE FOR MSE.
[2018-06-23] MEDS ORDERED: LORAZEPAM 0.5 MG TABLET ONE (22:14)
[2018-06-23] MEDS ORDERED: LORAZEPAM 0.5 MG TABLET PO ONE (22:15)
[2018-06-23 22:26] LABS: BASOPHILS % (AUTO) 0.6 % (0.0-2.0); EOSINOPHILS # (AUTO) 0.2 K/uL (0.0-0.7); HEMATOCRIT 30.8 % (31.2-41.9); HEMOGLOBIN 10.4 g/dL (10.9-14.3); LYMPHOCYTES # (AUTO) 2.9 K/uL (20.0-40.0); LYMPHOCYTES % (AUTO) 41.3 % (20.5-51.5); MEAN CORPUSCULAR HEMOGLOBIN 31.3 uug (24.7-32.8); MEAN CORPUSCULAR HGB CONC 34 g/dL (32.3-35.6); MONOCYTES # (AUTO) 0.8 K/uL (2.0-10.0); MONOCYTES % (AUTO) 11.1 % (0.0-11.0); NEUTROPHILS # (AUTO) 3.1 K/uL (1.8-8.9); PLATELET COUNT (AUTO) 211 K/uL (179-408); RED BLOOD CELL COUNT(AUTO) 3.31 MIL/uL (3.63-4.92); WHITE BLOOD COUNT (AUTO) 7.1 K/uL (3.8-11.8)
[2018-06-23 22:34] LABS: CARBON DIOXIDE 24 mmol/L (21-32); CHLORIDE 103 mmol/L (98-107); CREATININE 0.8 mg/dL (0.6-1.3); GLUCOSE 100 mg/dL (74-106); UREA NITROGEN, BLOOD 18 mg/dL (7-18)
--- NOTE | 2018-06-23 23:00 | NUR ---
LEYLA WALLACE AT BEDSIDE FOR PT UPDATE.
--- NOTE | 2018-06-23 23:11 | NUR ---
Patient discharged to home in stable conditon. Written and verbal after care instructions given. Patient verbalizes understanding of instructions. ALL BELONGINGS W/ PT. PT ASSISTED OUT TO PRIVATE VEHICLE IN W/C. PT WILL BE DRIVEN BACK TO [facility] BY FAMILY MEMBER IN PRIVATE VEHICLE PER PT'S REQUEST.
[2018-06-23 23:17] VITALS: BP 128/66
== END 2018-06-23 23:18 | disposition home or self-care (01) ==
LOC: ER 21:28
DX: F41.9 Anxiety disorder, unspecified (principal); I10 Essential (primary) hypertension; I48.91 Unspecified atrial fibrillation; E11.9 Type 2 diabetes mellitus without complications; E78.5 Hyperlipidemia, unspecified; K21.9 Gastro-esophageal reflux disease without esophagitis; G89.29 Other chronic pain; M54.9 Dorsalgia, unspecified; Z86.73 Personal history of transient ischemic attack (TIA), and cerebral infarction without residual deficits; Z79.891 Long term (current) use of opiate analgesic; Z79.899 Other long term (current) drug therapy
CPT/HCPCS: 36415; 85025; A4663

== ENCOUNTER 2018-12-24 13:39 | Inpatient (IN) | payer MEDICARE, MEDICAID ==
[~2018-12-24] VITALS: Ht 157.5 cm; Wt 77.8 kg
[2018-12-24 14:19] LABS: BASOPHILS % (AUTO) 0.5 % (0.0-2.0); EOSINOPHILS # (AUTO) 0.3 K/uL (0.0-0.7); EOSINOPHILS % (AUTO) 3.2 % (0.0-7.0); HEMOGLOBIN 13.8 g/dL (10.9-14.3); LYMPHOCYTES # (AUTO) 3.3 K/uL (20.0-40.0); LYMPHOCYTES % (AUTO) 36.3 % (20.5-51.5); MEAN CORPUSCULAR HEMOGLOBIN 30.8 uug (24.7-32.8); MEAN CORPUSCULAR HGB CONC 33 g/dL (32.3-35.6); MEAN CORPUSCULAR VOLUME 93.5 fL (75.5-95.3); MONOCYTES # (AUTO) 0.6 K/uL (2.0-10.0); MONOCYTES % (AUTO) 6.4 % (0.0-11.0); NEUTROPHILS # (AUTO) 4.8 K/uL (1.8-8.9); NEUTROPHILS % (AUTO) 53.6 % (38.5-71.5); PLATELET COUNT (AUTO) 246 K/uL (179-408)
[2018-12-24 14:30] LABS: POTASSIUM 4.3 mmol/L (3.5-5.1)
[2018-12-24 14:42] LABS: BILIRUBIN,DIRECT 0.1 mg/dL (0.0-0.2); BILIRUBIN,TOTAL 0.4 mg/dL (0.2-1.0); TOTAL PROTEIN, SERUM 8.4 g/dL (6.4-8.2)
[2018-12-24] MEDS ORDERED: AZIL1TAB2 PO (17:09)
[2018-12-24] MEDS ORDERED: GUAI600T53 PO (17:09)
[2018-12-24] MEDS ORDERED: EMPA10TA PO (17:09)
[2018-12-24] MEDS ORDERED: ALBU18HF2 IH (17:09)
[2018-12-24] MEDS ORDERED: INSULIN REGULAR, HUMAN 300 UNIT/3 ML VIAL SQ PRN (18:15)
[2018-12-24] MEDS ORDERED: MORPHINE SULFATE 2 MG/1 ML DISP.SYRIN IV PRN (18:15)
[2018-12-24] MEDS ORDERED: HYDROCODONE/APAP 5-325MG TABLET PO PRN (18:15)
[2018-12-24] MEDS ORDERED: DEXTROSE 50% 50 ML DISP.SYRIN IV PRN (18:15)
[2018-12-24] MEDS ORDERED: ALBUTEROL SULFATE 2.5 MG/3 ML NEBU NEB PRN (18:15)
[2018-12-24] MEDS ORDERED: ONDANSETRON 4 MG/2 ML VIAL IV PRN (18:15)
[2018-12-24] MEDS ORDERED: Z GUARD REMEDY PASTE 57 GM TUBE TOP PRN (18:15)
[2018-12-24] MEDS ORDERED: MAGNESIUM HYDROXIDE 30 ML LIQUID UDC PO PRN (18:15)
[2018-12-24] MEDS ORDERED: ACETAMINOPHEN 325 MG TABLET PO PRN (18:15)
[2018-12-24 18:25] VITALS: BP 122/71
[2018-12-24 19:06] LABS: *BILIRUBIN,URIN NEGATIVE (NEGATIVE); *BLOOD, URINE NEGATIVE (NEGATIVE); *CLARITY,URINE CLEAR (CLEAR); *COLOR,URINE YELLOW (YELLOW); *KETONES,URINE NEGATIVE (NEGATIVE); *UROBILINOGEN,URINE 0.2 E.U./dl (NORMAL); LEUKOCYTE ESTERASE ,URINE NEGATIVE (NEGATIVE); NITRITE, URINE NEGATIVE (NEGATIVE); UGLUCOSE 2+ (NEGATIVE)
[2018-12-24 19:12] LABS: SQUAMOUS EPITHELIAL CELL,UR FEW /HPF (NONE SEEN); WBC,URINE 0-3 /HPF (0-3)
[2018-12-24 19:30] VITALS: BP 104/64
[2018-12-24] MEDS ORDERED: CALCIUM CARBONATE 500 MG TAB.CHEW PO PRN (19:30)
[2018-12-24] MEDS: IV NS 1000 ML 1,000 ML IV PRN (20:06)
[2018-12-24] MEDS: BLOOD SUGAR DIAGNOSTIC 1 EACH STRIP VI SCH (20:25)
[2018-12-24] MEDS ORDERED: RIVAROXABAN 10 MG TABLET ONE (22:07)
[2018-12-24] MEDS: RIVAROXABAN 10 MG TABLET PO SCH (22:14)
[2018-12-24] MEDS: ZOLPIDEM 5 MG TABLET PO PRN (22:30)
[2018-12-24 23:50] VITALS: BP 118/69
[2018-12-25 05:16] VITALS: BP 112/70
[2018-12-25] MEDS: PANTOPRAZOLE SODIUM 40 MG TABLET.DR PO SCH (06:25)
[2018-12-25] MEDS: LEVOTHYROXINE SODIUM 112 MCG TABLET PO SCH (06:25)
[2018-12-25] MEDS: BLOOD SUGAR DIAGNOSTIC 1 EACH STRIP VI SCH ×4 (06:30→21:18)
[2018-12-25 06:36] LABS: BASOPHILS % (AUTO) 0.4 % (0.0-2.0); EOSINOPHILS # (AUTO) 0.3 K/uL (0.0-0.7); EOSINOPHILS % (AUTO) 4.2 % (0.0-7.0); LYMPHOCYTES # (AUTO) 3.2 K/uL (20.0-40.0); LYMPHOCYTES % (AUTO) 48.1 % (20.5-51.5); MEAN CORPUSCULAR HGB CONC 33 g/dL (32.3-35.6); MEAN CORPUSCULAR VOLUME 93.2 fL (75.5-95.3); MONOCYTES # (AUTO) 0.4 K/uL (2.0-10.0); MONOCYTES % (AUTO) 6.4 % (0.0-11.0); NEUTROPHILS # (AUTO) 2.7 K/uL (1.8-8.9); NEUTROPHILS % (AUTO) 40.9 % (38.5-71.5); RED BLOOD CELL COUNT(AUTO) 3.86 MIL/uL (3.63-4.92)
[2018-12-25 06:45] LABS: HEMATOCRIT 35.9 % (31.2-41.9); PLATELET COUNT (AUTO) 171 K/uL (179-408); WHITE BLOOD COUNT (AUTO) 6.6 K/uL (3.8-11.8)
[2018-12-25 06:55] LABS: BILIRUBIN,TOTAL 0.4 mg/dL (0.2-1.0); MAGNESIUM 1.9 mg/dL (1.8-2.4); PHOSPHOROUS 4.2 mg/dL (2.5-4.9); POTASSIUM 3.6 mmol/L (3.5-5.1); TOTAL PROTEIN, SERUM 7.1 g/dL (6.4-8.2)
[2018-12-25 06:59] LABS: THYROID STIMULATING HORMONE 4.567 mIU/mL (0.358-3.740)
[2018-12-25] MEDS: SOTALOL HCL 80 MG TABLET PO SCH ×2 (08:45→21:21)
[2018-12-25] MEDS ORDERED: AZILSARTAN MED PO SCH (09:00)
[2018-12-25] MEDS ORDERED: [UNRECOGNIZED DRUG - OTHER] PO SCH (09:00)
[2018-12-25] MEDS ORDERED: CHLORTHALIDONE PO SCH (09:00)
[2018-12-25] MEDS ORDERED: Medication Not On Formulary EA (Empagliflozin (Jardiance) 10 MG) PO SCH (09:00)
[2018-12-25] MEDS ORDERED: RIVAROXABAN 10 MG TABLET PO SCH (09:00)
[2018-12-25 11:43] VITALS: BP 124/73
[2018-12-25] MEDS: IV NS 1000 ML 1,000 ML IV PRN (11:47)
[2018-12-25 16:00] VITALS: BP 120/70
[2018-12-25 19:44] VITALS: BP 142/65
[2018-12-25] MEDS ORDERED: GUAIFENESIN SUGAR FREE 100 MG/5 ML UDC PO PRN (21:15)
[2018-12-25] MEDS: RIVAROXABAN 10 MG TABLET PO SCH (21:21)
[2018-12-25] MEDS ORDERED: GUAIFENESIN/DEXTROMETHORPHAN 5 ML UDC PO PRN (21:30)
[2018-12-26] MEDS: ZOLPIDEM 5 MG TABLET PO PRN (00:16)
[2018-12-26] MEDS: IV NS 1000 ML 1,000 ML IV PRN (00:18)
[2018-12-26 00:24] VITALS: BP 117/64
[2018-12-26] MEDS: BLOOD SUGAR DIAGNOSTIC 1 EACH STRIP VI SCH ×2 (06:28→11:54)
[2018-12-26] MEDS: PANTOPRAZOLE SODIUM 40 MG TABLET.DR PO SCH (06:28)
[2018-12-26] MEDS: LEVOTHYROXINE SODIUM 112 MCG TABLET PO SCH (06:29)
[2018-12-26] MEDS ORDERED: EDARBYCLOR PO SCH (09:00)
[2018-12-26] MEDS ORDERED: JARDIANCE 10MG PO SCH (09:00)
[2018-12-26] MEDS: SOTALOL HCL 80 MG TABLET PO SCH (09:54)
[2018-12-26 10:00] VITALS: BP_SYST 105; BP_SYST 112; BP_SYST 123; BP_DIAS 60; BP_DIAS 68; BP_DIAS 76
[2018-12-26] MEDS ORDERED: BENZ-13 PO (10:44)
[2018-12-26] MEDS ORDERED: BENZONATATE 100 MG CAPSULE PO SCH (11:00)
[2018-12-26 12:03] VITALS: BP 145/69
== END 2018-12-26 14:25 | disposition home or self-care (01) | DRG 641 ==
LOC: ER 13:39 → TELE3 18:00
PROVIDERS: ADMIT Nurse Practitioner Acute Care; ATTEND Nurse Practitioner Acute Care
DX: E86.0 Dehydration (principal); I95.9 Hypotension, unspecified; E87.1 Hypo-osmolality and hyponatremia; E89.0 Postprocedural hypothyroidism; I48.0 Paroxysmal atrial fibrillation; Z79.890 Hormone replacement therapy; Z86.73 Personal history of transient ischemic attack (TIA), and cerebral infarction without residual deficits; I10 Essential (primary) hypertension; Z79.01 Long term (current) use of anticoagulants; Z79.84 Long term (current) use of oral hypoglycemic drugs; G89.29 Other chronic pain; E11.65 Type 2 diabetes mellitus with hyperglycemia; Z80.0 Family history of malignant neoplasm of digestive organs; M81.0 Age-related osteoporosis without current pathological fracture; K21.9 Gastro-esophageal reflux disease without esophagitis; E88.09 Other disorders of plasma-protein metabolism, not elsewhere classified; E78.5 Hyperlipidemia, unspecified; R05 Cough; M54.9 Dorsalgia, unspecified
CPT/HCPCS: 36415; 70030-TC; 71045; 83605; 83735; 84100; 84443; 85025; 87040; 87086; 93005; A4663; G0378; J1815; J7030

== ENCOUNTER 2019-05-12 06:28 | Inpatient (IN) | payer MEDICARE, MEDICAID ==
[2019-05-12] VITALS (18 sets, daily range): BP systolic 81–134; BP diastolic 46–90
[~2019-05-12] VITALS: Ht 157.5 cm; Wt 75.8 kg
[2019-05-12] MEDS ORDERED: AMIODARONE HCL IV 900 MG in IV DEXTROSE 5% 500 ML IV ONE (06:45)
[2019-05-12] MEDS ORDERED: METOPROLOL TARTRATE 5 MG/5 ML VIAL IVP ONE (06:45)
[2019-05-12] MEDS ORDERED: AMIODARONE HCL IV 150 MG in IV DEXTROSE 5% 100 ML IV ONE (06:45)
[2019-05-12] MEDS ORDERED: IV NORMAL SALINE 500 ML BAG IV ONE (06:45)
[2019-05-12] MEDS ORDERED: AMIODARONE HCL 150 MG/3 ML VIAL IV ONE ×2 (06:51→06:57)
[2019-05-12 07:11] LABS: BASOPHILS % (AUTO) 0.2 % (0.0-2.0); EOSINOPHILS # (AUTO) 0.1 K/uL (0.0-0.7); EOSINOPHILS % (AUTO) 2.2 % (0.0-7.0); HEMATOCRIT 28.8 % (31.2-41.9); HEMOGLOBIN 10.3 g/dL (10.9-14.3); LYMPHOCYTES # (AUTO) 1.1 K/uL (20.0-40.0); MEAN CORPUSCULAR HEMOGLOBIN 33.4 uug (24.7-32.8); MEAN CORPUSCULAR HGB CONC 36 g/dL (32.3-35.6); MEAN CORPUSCULAR VOLUME 93.5 fL (75.5-95.3); MONOCYTES # (AUTO) 0.6 K/uL (2.0-10.0); MONOCYTES % (AUTO) 10.2 % (0.0-11.0); NEUTROPHILS # (AUTO) 3.9 K/uL (1.8-8.9); NEUTROPHILS % (AUTO) 68.4 % (38.5-71.5); PLATELET COUNT (AUTO) 177 K/uL (179-408); RED BLOOD CELL COUNT(AUTO) 3.08 MIL/uL (3.63-4.92); WHITE BLOOD COUNT (AUTO) 5.7 K/uL (3.8-11.8)
[2019-05-12 07:31] LABS: BILIRUBIN,DIRECT 0.2 mg/dL (0.0-0.2); BILIRUBIN,TOTAL 0.5 mg/dL (0.2-1.0); CREATININE 1.1 mg/dL (0.6-1.3); POTASSIUM 3.6 mmol/L (3.5-5.1); TOTAL PROTEIN, SERUM 6.6 g/dL (6.4-8.2)
[2019-05-12] MEDS ORDERED: AMIODARONE HCL IV 900 MG in IV DEXTROSE 5% 482 ML IV PRN (09:30)
[2019-05-12] MEDS ORDERED: PHENYLEPHRINE IV 80 MG in IV DEXTROSE 5% 250 ML IV PRN ×2 (10:30→10:45)
[2019-05-12] MEDS ORDERED: ONDANSETRON 4 MG/2 ML VIAL IV PRN (10:30)
[2019-05-12] MEDS ORDERED: MORPHINE SULFATE 2 MG/1 ML DISP.SYRIN IV PRN (10:30)
[2019-05-12] MEDS ORDERED: Z GUARD REMEDY PASTE 57 GM TUBE TOP PRN (10:30)
[2019-05-12] MEDS ORDERED: ZOLPIDEM 5 MG TABLET PO PRN (10:30)
[2019-05-12] MEDS ORDERED: ACETAMINOPHEN 325 MG TABLET PO PRN (10:30)
[2019-05-12] MEDS ORDERED: MAGNESIUM HYDROXIDE 30 ML LIQUID UDC PO PRN (10:30)
[2019-05-12] MEDS ORDERED: DEXTROSE 50% 50 ML DISP.SYRIN IV PRN (10:45)
[2019-05-12] MEDS: BLOOD SUGAR DIAGNOSTIC 1 EACH STRIP VI SCH ×3 (12:13→21:40)
[2019-05-12 12:44] LABS: *BILIRUBIN,URIN NEGATIVE (NEGATIVE); *BLOOD, URINE NEGATIVE (NEGATIVE); *CLARITY,URINE CLEAR (CLEAR); *COLOR,URINE YELLOW (YELLOW); *KETONES,URINE NEGATIVE (NEGATIVE); *UROBILINOGEN,URINE 0.2 E.U./dl (NORMAL); LEUKOCYTE ESTERASE ,URINE NEGATIVE (NEGATIVE); NITRITE, URINE NEGATIVE (NEGATIVE); PH,URINE 5.5 (5.0-8.0)
[2019-05-12] MEDS ORDERED: IOHEXOL 350 100 ML INFUS..BTL ONE (12:44)
[2019-05-12] MEDS ORDERED: IV NORMAL SALINE 250 ML IV ONE (12:44)
[2019-05-12] MEDS ORDERED: SWABABLE VALVE TRANSFER SET EA MC ONE (12:44)
[2019-05-12 12:47] LABS: UGLUCOSE 2+ (NEGATIVE)
[2019-05-12] MEDS: INSULIN REGULAR, HUMAN 300 UNIT/3 ML VIAL SQ PRN (17:28)
[2019-05-12] MEDS: RIVAROXABAN 10 MG TABLET PO SCH (17:33)
[2019-05-12] MEDS ORDERED: BISACODYL 10 MG SUPP.RECT RC ONE (18:30)
[2019-05-13] VITALS (15 sets, daily range): BP systolic 111–168; BP diastolic 44–89
[2019-05-13 05:56] LABS: BASOPHILS % (AUTO) 0.3 % (0.0-2.0); EOSINOPHILS # (AUTO) 0.1 K/uL (0.0-0.7); EOSINOPHILS % (AUTO) 2.6 % (0.0-7.0); HEMATOCRIT 27.7 % (31.2-41.9); HEMOGLOBIN 9.4 g/dL (10.9-14.3); LYMPHOCYTES # (AUTO) 1.5 K/uL (20.0-40.0); LYMPHOCYTES % (AUTO) 28.1 % (20.5-51.5); MEAN CORPUSCULAR HGB CONC 34 g/dL (32.3-35.6); MEAN CORPUSCULAR VOLUME 93.8 fL (75.5-95.3); MONOCYTES # (AUTO) 0.6 K/uL (2.0-10.0); MONOCYTES % (AUTO) 12.3 % (0.0-11.0); NEUTROPHILS % (AUTO) 56.7 % (38.5-71.5); PLATELET COUNT (AUTO) 203 K/uL (179-408); RED BLOOD CELL COUNT(AUTO) 2.95 MIL/uL (3.63-4.92); WHITE BLOOD COUNT (AUTO) 5.2 K/uL (3.8-11.8)
[2019-05-13 06:12] LABS: CREATININE 0.9 mg/dL (0.6-1.3); MAGNESIUM 2.1 mg/dL (1.8-2.4); PHOSPHOROUS 1.9 mg/dL (2.5-4.9); POTASSIUM 3.6 mmol/L (3.5-5.1)
[2019-05-13] MEDS: LEVOTHYROXINE SODIUM 112 MCG TABLET PO SCH (06:14)
[2019-05-13] MEDS: PANTOPRAZOLE SODIUM 40 MG TABLET.DR PO SCH (06:14)
[2019-05-13] MEDS: BLOOD SUGAR DIAGNOSTIC 1 EACH STRIP VI SCH ×4 (06:31→22:00)
[2019-05-13] MEDS: INSULIN REGULAR, HUMAN 300 UNIT/3 ML VIAL SQ PRN ×3 (06:32→17:27)
[2019-05-13] MEDS ORDERED: AMIODARONE HCL 200 MG TABLET PO SCH ×2 (07:29→09:00)
[2019-05-13] MEDS: DOCUSATE SODIUM 100 MG CAPSULE PO SCH (08:11)
[2019-05-13] MEDS: AMIODARONE HCL 200 MG TABLET PO SCH ×2 (08:11→21:00)
[2019-05-13] MEDS: MAGNESIUM OXIDE 400 MG TABLET PO SCH (08:11)
[2019-05-13] MEDS ORDERED: Medication Not On Formulary EA (Magnesium Oxide 400 MG) PO SCH (09:00)
[2019-05-13 09:56] LABS: BILIRUBIN,DIRECT 0.1 mg/dL (0.0-0.2); BILIRUBIN,TOTAL 0.6 mg/dL (0.2-1.0); TOTAL PROTEIN, SERUM 6.8 g/dL (6.4-8.2)
[2019-05-13] MEDS ORDERED: NEUTRA PHOS PACKET PO ONE (10:15)
[2019-05-13] MEDS ORDERED: hydrALAZINE HCL 20 MG/1 ML VIAL IV PRN (10:45)
[2019-05-13] MEDS: LOSARTAN POTASSIUM 25 MG TABLET PO SCH (11:43)
[2019-05-13] MEDS ORDERED: LORAZEPAM 0.5 MG TABLET PO PRN (12:45)
[2019-05-13] MEDS: RIVAROXABAN 10 MG TABLET PO SCH (17:26)
[2019-05-13] MEDS: HYDROCODONE/APAP 5-325MG TABLET PO PRN (22:39)
[2019-05-14 00:42] VITALS: BP 100/55
[2019-05-14 05:14] VITALS: BP 136/70
[2019-05-14 06:45] LABS: CREATININE 0.9 mg/dL (0.6-1.3); MAGNESIUM 1.9 mg/dL (1.8-2.4); PHOSPHOROUS 2.7 mg/dL (2.5-4.9); POTASSIUM 3.6 mmol/L (3.5-5.1)
[2019-05-14] MEDS: LEVOTHYROXINE SODIUM 112 MCG TABLET PO SCH (07:10)
[2019-05-14] MEDS: PANTOPRAZOLE SODIUM 40 MG TABLET.DR PO SCH (07:10)
[2019-05-14 07:29] LABS: BASOPHILS % (AUTO) 0.3 % (0.0-2.0); EOSINOPHILS # (AUTO) 0.1 K/uL (0.0-0.7); EOSINOPHILS % (AUTO) 2.9 % (0.0-7.0); HEMATOCRIT 27.6 % (31.2-41.9); HEMOGLOBIN 9.4 g/dL (10.9-14.3); LYMPHOCYTES # (AUTO) 1.6 K/uL (20.0-40.0); LYMPHOCYTES % (AUTO) 33.7 % (20.5-51.5); MEAN CORPUSCULAR HEMOGLOBIN 31.8 uug (24.7-32.8); MEAN CORPUSCULAR HGB CONC 34 g/dL (32.3-35.6); MONOCYTES # (AUTO) 0.6 K/uL (2.0-10.0); NEUTROPHILS # (AUTO) 2.4 K/uL (1.8-8.9); NEUTROPHILS % (AUTO) 51.1 % (38.5-71.5); PLATELET COUNT (AUTO) 233 K/uL (179-408); RED BLOOD CELL COUNT(AUTO) 2.97 MIL/uL (3.63-4.92); WHITE BLOOD COUNT (AUTO) 4.8 K/uL (3.8-11.8)
[2019-05-14] MEDS: BLOOD SUGAR DIAGNOSTIC 1 EACH STRIP VI SCH ×4 (07:42→20:18)
[2019-05-14] MEDS: LOSARTAN POTASSIUM 25 MG TABLET PO SCH (08:49)
[2019-05-14] MEDS: DOCUSATE SODIUM 100 MG CAPSULE PO SCH (08:49)
[2019-05-14] MEDS: MAGNESIUM OXIDE 400 MG TABLET PO SCH (08:50)
[2019-05-14] MEDS: AMIODARONE HCL 200 MG TABLET PO SCH (08:51)
[2019-05-14] MEDS: INSULIN REGULAR, HUMAN 300 UNIT/3 ML VIAL SQ PRN ×3 (08:57→20:19)
[2019-05-14 11:24] VITALS: BP 119/86
[2019-05-14 15:36] VITALS: BP 116/76
[2019-05-14] MEDS: RIVAROXABAN 10 MG TABLET PO SCH (17:19)
[2019-05-14 20:00] VITALS: BP 128/81
[2019-05-14] MEDS: HYDROCODONE/APAP 5-325MG TABLET PO PRN (23:53)
[2019-05-15 05:08] VITALS: BP 128/66
[2019-05-15] MEDS: PANTOPRAZOLE SODIUM 40 MG TABLET.DR PO SCH (06:13)
[2019-05-15] MEDS: LEVOTHYROXINE SODIUM 112 MCG TABLET PO SCH (06:13)
[2019-05-15 07:00] LABS: ALANINE AMINOTRANSFERASE 14 U/L (14-59); ALKALINE PHOSPHATASE 60 U/L (50-136); ASPARTATE AMINOTRANSFERASE 15 U/L (15-37); BILIRUBIN,TOTAL 0.5 mg/dL (0.2-1.0); CARBON DIOXIDE 29 mmol/L (21-32); CHLORIDE 102 mmol/L (98-107); CREATININE 0.9 mg/dL (0.6-1.3); GLUCOSE 152 mg/dL (74-106); MAGNESIUM 1.8 mg/dL (1.8-2.4); PHOSPHOROUS 2.7 mg/dL (2.5-4.9); POTASSIUM 3.6 mmol/L (3.5-5.1); TOTAL PROTEIN, SERUM 6.7 g/dL (6.4-8.2); UREA NITROGEN, BLOOD 16 mg/dL (7-18)
[2019-05-15] MEDS: BLOOD SUGAR DIAGNOSTIC 1 EACH STRIP VI SCH ×2 (07:03→11:30)
[2019-05-15 07:16] LABS: BASOPHILS % (AUTO) 0.3 % (0.0-2.0); EOSINOPHILS # (AUTO) 0.2 K/uL (0.0-0.7); EOSINOPHILS % (AUTO) 3.8 % (0.0-7.0); HEMOGLOBIN 9.6 g/dL (10.9-14.3); LYMPHOCYTES # (AUTO) 1.9 K/uL (20.0-40.0); LYMPHOCYTES % (AUTO) 40.5 % (20.5-51.5); MEAN CORPUSCULAR HEMOGLOBIN 32.1 uug (24.7-32.8); MEAN CORPUSCULAR HGB CONC 35 g/dL (32.3-35.6); MONOCYTES # (AUTO) 0.5 K/uL (2.0-10.0); MONOCYTES % (AUTO) 10.5 % (0.0-11.0); NEUTROPHILS # (AUTO) 2.1 K/uL (1.8-8.9); NEUTROPHILS % (AUTO) 44.9 % (38.5-71.5); PLATELET COUNT (AUTO) 283 K/uL (179-408); RED BLOOD CELL COUNT(AUTO) 3.01 MIL/uL (3.63-4.92); WHITE BLOOD COUNT (AUTO) 4.6 K/uL (3.8-11.8)
[2019-05-15] MEDS: HYDROCODONE/APAP 5-325MG TABLET PO PRN (08:20)
[2019-05-15] MEDS: AMIODARONE HCL 200 MG TABLET PO SCH (09:54)
[2019-05-15] MEDS: DOCUSATE SODIUM 100 MG CAPSULE PO SCH (09:54)
[2019-05-15] MEDS: LOSARTAN POTASSIUM 25 MG TABLET PO SCH (09:55)
[2019-05-15] MEDS: MAGNESIUM OXIDE 400 MG TABLET PO SCH (09:55)
[2019-05-15] MEDS: INSULIN REGULAR, HUMAN 300 UNIT/3 ML VIAL SQ PRN ×2 (09:57→12:30)
[2019-05-15 11:41] VITALS: BP 131/80
[2019-05-15 15:46] VITALS: BP 112/78
== END 2019-05-15 17:25 | disposition home or self-care (01) | DRG 308 ==
LOC: ER 06:33 → CCU 08:17 → TELE3 05-13 13:12
PROVIDERS: ADMIT Hospitalist; ATTEND Hospitalist
PROC: 3E033RZ Introduction of Antiarrhythmic into Peripheral Vein, Percutaneous Approach (ICD-10-PCS; principal; 2019-05-12)
DX: I48.0 Paroxysmal atrial fibrillation (principal); I50.33 Acute on chronic diastolic (congestive) heart failure; E44.0 Moderate protein-calorie malnutrition; D68.59 Other primary thrombophilia; E78.5 Hyperlipidemia, unspecified; I07.1 Rheumatic tricuspid insufficiency; E89.0 Postprocedural hypothyroidism; Z68.31 Body mass index [BMI] 31.0-31.9, adult; E66.9 Obesity, unspecified; M81.0 Age-related osteoporosis without current pathological fracture; G89.29 Other chronic pain; K21.9 Gastro-esophageal reflux disease without esophagitis; Z86.73 Personal history of transient ischemic attack (TIA), and cerebral infarction without residual deficits; Z82.49 Family history of ischemic heart disease and other diseases of the circulatory system; Z79.890 Hormone replacement therapy; D69.6 Thrombocytopenia, unspecified; I95.89 Other hypotension; Z74.09 Other reduced mobility; E11.9 Type 2 diabetes mellitus without complications; I70.0 Atherosclerosis of aorta; D64.9 Anemia, unspecified; Z79.01 Long term (current) use of anticoagulants; Z80.0 Family history of malignant neoplasm of digestive organs; Z96.651 Presence of right artificial knee joint; R94.31 Abnormal electrocardiogram [ECG] [EKG]; I11.0 Hypertensive heart disease with heart failure
CPT/HCPCS: 36415; 70030-TC; 71045; 71275; 83735; 84100; 84443; 85025; 85730; 87086; 93005; 93307; A4663; G0378; J0282; J1815; J7040; J7050; J7060; Q9967